=== PATIENT | male | born 1955 | race Caucasian/White ===

== ENCOUNTER → 2016-10-31 | Outpatient (CLI) | payer MEDICARE ==
--- NOTE | 2016-10-31 17:05 | XR ---
Lumbar spine HISTORY: Intervertebral disc degeneration 3 views of the lumbar spine Comparison to CT scan dated March Lumbar vertebral bodies show preserved height and alignment. Bone mineralization is reduced. Mild los s of disc height L3-4, there is associated spondylosis. Sclerosis present in the posterior elements. Superior endplate of T12 show some depression of approximately 25% anteriorly. No evident retropulsio n. Frontal view does not show this region. Surgical clips present in the right hemiabdomen. There are vascular calcifications present. IMPRESSION: Degenerative disc disease, facet arthropathy and osteopenia. Probable osteoporotic compre ssion deformity superior endplate T12
== END | disposition home or self-care (01) ==
LOC: RADXRMAIN 14:50
PROVIDERS: ATTEND Family Medicine
DX: M51.36 Other intervertebral disc degeneration, lumbar region (principal); M46.86 Other specified inflammatory spondylopathies, lumbar region; M85.88 Other specified disorders of bone density and structure, other site
CPT/HCPCS: 72100

== ENCOUNTER 2017-05-14 20:47 | Inpatient (IN) | payer MEDICARE ==
[2017-05-14] MEDS ORDERED: ASPIRIN 81 MG PO STA (21:01)
[2017-05-14] MEDS ORDERED: ONDANSETRON 4 MG/2 ML VIAL IVP STA (21:01)
[2017-05-14] MEDS ORDERED: NITROGLYCERIN SL TABS 0.4 MG TAB SUBLINGUAL STA (21:01)
[2017-05-14] MEDS ORDERED: MORPHINE SULFATE 2 MG/ML SYRINGE IVP STA (21:01)
--- NOTE | 2017-05-14 21:07 | ED ---
Chest Pain HPI - General Chief Complaint: Chest Pain Stated Complaint: Chest pain,dizzy Time Seen by Provider: 05/14/17 21:01 Source: patient Mode of arrival: wheelchair Limitations: no limitations - History of Present Illness Initial Comments: This patient is a 62-year-old man who states that approximately one hour ago he started to experience muscle cramps throughout his extremities. He went to sit down to have his dinner and then started having some left sided and substernal chest pain that he describes as constant, squeezing, severe. He then decided to come here. Patient also developed some nausea and had an episode of vomiting once he arrived here. He was also feeling like he might pass out. Patient states after the episode of vomiting the pain did decrease and is currently moderate. MD Complaint: chest pain Onset/Timin -: hour(s) Onset: during rest Pain Location: substernal, left chest Pain Radiation: none Severity: severe Quality: other (Squeezing) Consistency: constant Improves With: nothing Worsens With: nothing Anginal Symptoms: vomiting Treatments Prior to Arrival: none - Related Data Home Medications Medication Instructions Recorded Confirmed Aspirin 81 mg PO DAILY 05/19/14 05/14/17 Insulin NPL/Insulin Lispro 55 unit SQ QA 05/19/14 05/14/17 [humaLOG MIX 75-25 VIAL] Insulin NPL/Insulin Lispro 70 unit SQ HS 05/19/14 05/14/17 [humaLOG MIX 75-25 VIAL] amLODIPine [Norvasc] 5 mg PO HS 05/19/14 05/14/17 Cholecalciferol [Vitamin D3] 1,000 unit PO DAILY 05/14/17 05/14/17 Doxazosin Mesylate [Cardura] 4 mg PO BID 05/14/17 05/14/17 Furosemide [Lasix] 20 mg PO BID 05/14/17 05/14/17 Lisinopril [Zestril] 20 mg PO BID 05/14/17 05/14/17 [place]-3 Fatty Acids/Fish Oil [Fish 1 cap PO DAILY 05/14/17 05/14/17 Oil 1,000 mg Softgel] Allergies Allergy/AdvReac Type Severity Reaction Status Date / Time No Known Allergies Allergy Verified 05/14/17 20:53 Review of Systems ROS Statement: Those systems with pertinent positive or pertinent negative responses have been documented in the HPI. ROS Other: All systems not noted in ROS Statement are negative. Constitutional: Denies: fever, chills Respiratory: Denies: cough, dyspnea, hemoptysis Cardiovascular: Reports: chest pain. Denies: palpitations, orthopnea, edema, syncope Gastrointestinal: Reports: nausea, vomiting. Denies: abdominal pain Genitourinary: Denies: dysuria, hematuria Musculoskeletal: Denies: back pain Skin: Denies: rash, lesions Neurological: Denies: weakness, paresthesias EKG Findings - EKG Results: EKG: interpreted by ERMD, sinus rhythm, normal axis, normal QRS, normal ST/T EKG shows: bradycardia (Rate approximately 59 bpm) - Blocks, Winger, Hypertrophy, ST Abn: AV and intraventricular conduction: 1 AV block QRS axis and voltage: left axis deviation (-30 to -90) Past Medical History Past Medical History: Cancer, Diabetes Mellitus, Hypertension, Renal Disease History of Any Multi-Drug Resistant Organisms: None Reported Past Surgical History: Cholecystectomy Additional Past Surgical History / Comment(s): colon cancer Past Psychological History: No Psychological Hx Reported Smoking Status: Never smoker Past Alcohol Use History: None Reported Past Drug Use History: None Reported General Exam Limitations: no limitations General appearance: alert, in no apparent distress, obese Head exam: Present: atraumatic, normocephalic Eye exam: Present: normal appearance. Absent: scleral icterus, conjunctival injection ENT exam: Present: normal oropharynx Neck exam: Present: normal inspection, full ROM Respiratory exam: Present: normal lung sounds bilaterally. Absent: respiratory distress, wheezes, rales, rhonchi Cardiovascular Exam: Present: regular rate, normal rhythm, normal heart sounds. Absent: systolic murmur, diastolic murmur, rubs, gallop GI/Abdominal exam: Present: soft. Absent: distended, tenderness, guarding, rebound, mass, pulsatile mass Extremities exam: Present: normal inspection, normal capillary refill. Absent: pedal edema, calf tenderness Back exam: Absent: CVA tenderness (R), CVA tenderness (L) Neurological exam: Present: alert Skin exam: Present: warm, dry, intact, normal color. Absent: rash Course Vital Signs 05/14/17 05/14/17 05/14/17 20:50 21:21 22:11 Temperature 98.2 F Pulse Rate 89 70 67 Respiratory 20 16 16 Rate Blood Pressure 161/72 90/56 94/56 O2 Sat by Pulse 97 98 100 Oximetry Disposition Clinical Impression: Chest pain, Acute renal failure, Hypotension Disposition: ADMITTED IP TO THIS HOSP Condition: Fair Referrals: Harsh Garcia MD [Primary Care Provider] - 1-2 days
[2017-05-14 21:22] LABS: Basophils # (A) 0.1 k/uL (0-0.2); Basophils % (A) 1 %; CH 31.2; CHCM 34.7; Eosinophils # (A) 0.3 k/uL (0-0.7); Eosinophils % (A) 4 %; HDW 2.49; HGB 13.6 gm/dL (13.0-17.5); Luc # (Auto) 0.06; Luc % (Auto) 1; Lymphocytes # (A) 2.2 k/uL (1.0-4.8); Lymphocytes % (A) 32 %; MCH 29.9 pg (25.0-35.0); MCHC 33.1 g/dL (31.0-37.0); Mean Platelet Volume 9.2; Monocytes # (A) 0.4 k/uL (0-1.0); Monocytes % (A) 6 %; Neutrophils # (A) 3.9 k/uL (1.3-7.7); Neutrophils % (A) 56 %; RBC 4.53 m/uL (4.30-5.90); RDW 14.5 % (11.5-15.5); WBC 6.9 k/uL (3.8-10.6); WBC (Perox) 7.09
[2017-05-14 21:25] LABS: MCV 90.4 fL (80.0-100.0)
[2017-05-14] MEDS ORDERED: SODIUM CHLORIDE 0.9% 500 ML IV STA (21:26)
[2017-05-14 21:36] LABS: Calcium 10.2 mg/dL (8.4-10.2); Magnesium 1.9 mg/dL (1.6-2.3); Total Bilirubin 0.7 mg/dL (0.2-1.3); Total Protein 7.8 g/dL (6.3-8.2)
[2017-05-14 21:37] LABS: Partial Thromboplastin Time 22.7 sec (22.0-30.0); Prothrombin Time 10.4 sec (9.0-12.0)
[2017-05-14 21:42] LABS: Creatine Kinase 133 U/L (55-170)
--- NOTE | 2017-05-14 21:44 | XR ---
EXAMINATION TYPE: XR chest 1V portable DATE OF EXAM: 05/14/2017 COMPARISON: 10/13/2013 HISTORY: Chest pain TECHNIQUE: Single frontal view of the chest is obtained. FINDINGS: Heart appears borderline enlarged. There is no heart failure. Lungs are clear of infiltrat e. There is no sign of pleural effusion. There are chest leads. IMPRESSION: No active cardiopulmonary disease. No change.
[2017-05-14 21:55] LABS: Creatine Kinase MB 1.6 ng/mL (0.0-2.4); Troponin I <0.012 ng/mL (0.000-0.034)
[2017-05-14] MEDS ORDERED: NITROGLYCERIN SL TABS 0.4 MG TAB SUBLINGUAL PRN (22:47)
[2017-05-14 23:53] VITALS: BMI 40.6
[2017-05-15 00:15] LABS: Glucose,Whole Blood 236 mg/dL (75-99)
[2017-05-15] MEDS: SODIUM CHLORIDE 0.9% 1,000 ML IV SCH ×3 (00:56→10:52)
[2017-05-15 03:00] LABS: Cholesterol 166 mg/dL (<200); HDL Cholesterol 25 mg/dL (40-60)
[2017-05-15 03:21] LABS: Creatine Kinase 110 U/L (55-170)
[2017-05-15 03:33] LABS: Creatine Kinase MB 1.2 ng/mL (0.0-2.4); Troponin I <0.012 ng/mL (0.000-0.034)
[2017-05-15 06:13] LABS: Glucose,Whole Blood 236 mg/dL (75-99)
[2017-05-15] MEDS ORDERED: INSULIN ASPART 100 UNIT/ML 1 ML 10 ML VIAL SQ ONE (08:45)
[2017-05-15] MEDS ORDERED: CHOLECALCIFEROL 1,000 UNIT TAB PO SCH (09:00)
[2017-05-15] MEDS ORDERED: DOXAZOSIN 4 MG TAB PO SCH (09:00)
[2017-05-15] MEDS ORDERED: ASPIRIN 325 MG TAB PO SCH (09:00)
[2017-05-15 09:46] LABS: Creatine Kinase 113 U/L (55-170)
[2017-05-15 09:53] LABS: Calcium 9.1 mg/dL (8.4-10.2); Potassium 4.7 mmol/L (3.5-5.1)
[2017-05-15 09:59] LABS: Troponin I <0.012 ng/mL (0.000-0.034)
--- NOTE | 2017-05-15 10:34 | P.NPCON ---
History of Present Illness - Reason for Consult acute renal failure, chronic renal failure - History of Present Illness Reason for consultation: Acute kidney injury on chronic kidney disease History of present illness: Patient is a 62-year-old male seen in renal consultation for acute kidney injury on chronic kidney disease. Patient has chronic kidney disease stage III secondary to diabetic kidney disease and solitary left kidney with baseline creatinine in the range of 1.3-1.5. Patient presented to the hospital with lower extremity cramps that started suddenly yesterday evening after he had dinner. Subsequently he also developed chest discomfort. Patient describes the chest discomfort mostly a sharp pain. Patient states when he went to the bathroom he felt lightheaded but denies falling or loss of consciousness. His creatinine on admission was 2.15 and is down to 1.95 today with IV fluids. He was taking an ALAN inhibitor as well as diuretics at home. He admits to good urine output. No hematuria or dysuria. He was noted to be hypotensive with systolic blood pressure in the 80s which has improved. He currently is resting in bed. Oral intake is good. Denies any vomiting or diarrhea. Cramping has resolved. No chest pain at this time. Vital signs are stable. General: The patient appeared well nourished and normally developed. HEENT: Head exam is unremarkable. Neck is without jugular venous distension. LUNGS: Lungs are clear to auscultation and percussion. Breath sounds decreased. HEART: Rate and Rhythm are regular. First and second heart sounds normal. No murmurs, rubs or gallops. ABDOMEN: Abdominal exam reveals normal bowel sounds. Non-tender and non- distended. No evidence of peritonitis. EXTREMITITES: No clubbing, cyanosis, or edema. Past Medical History Past Medical History: Cancer, Diabetes Mellitus, Hypertension, Renal Disease History of Any Multi-Drug Resistant Organisms: None Reported Past Surgical History: Cholecystectomy Additional Past Surgical History / Comment(s): colon cancer Past Anesthesia/Blood Transfusion Reactions: No Reported Reaction Past Psychological History: No Psychological Hx Reported Smoking Status: Former smoker Past Alcohol Use History: None Reported Past Drug Use History: None Reported - Past Family History Mother Family Medical History: Diabetes Mellitus Father Family Medical History: Coronary Artery Disease (CAD) Medications and Allergies Home Medications Medication Instructions Recorded Confirmed Type Aspirin 81 mg PO DAILY 05/19/14 05/14/17 History Insulin NPL/Insulin Lispro 55 unit SQ QAM 05/19/14 05/14/17 History [humaLOG MIX 75-25 VIAL] Insulin NPL/Insulin Lispro 70 unit SQ HS 05/19/14 05/14/17 History [humaLOG MIX 75-25 VIAL] amLODIPine [Norvasc] 5 mg PO HS 05/19/14 05/14/17 History Cholecalciferol [Vitamin D3] 1,000 unit PO DAILY 05/14/17 05/14/17 History Doxazosin Mesylate [Cardura] 4 mg PO BID 05/14/17 05/14/17 History Furosemide [Lasix] 20 mg PO BID 05/14/17 05/14/17 History Lisinopril [Zestril] 20 mg PO BID 05/14/17 05/14/17 History [place]-3 Fatty Acids/Fish Oil [Fish 1 cap PO DAILY 05/14/17 05/14/17 History Oil 1,000 mg Softgel] Allergies Allergy/AdvReac Type Severity Reaction Status Date / Time No Known Allergies Allergy Verified 05/14/17 20:53 Physical Exam Vitals: Vital Signs Temp Pulse Pulse Resp BP BP BP 05/15/17 08:00 97.3 F L 20 118/75 05/15/17 04:00 72 16 87/44 05/15/17 00:00 96.8 F L 69 18 125/70 05/14/17 23:14 96.8 F L 69 18 125/70 05/14/17 23:10 67 16 87/57 05/14/17 22:11 67 16 94/56 05/14/17 21:21 70 16 90/56 05/14/17 20:50 98.2 F 89 20 161/72 Pulse Ox 05/15/17 08:00 97 05/15/17 04:00 96 05/15/17 00:00 98 05/14/17 23:14 98 05/14/17 23:10 97 05/14/17 22:11 100 05/14/17 21:21 98 05/14/17 20:50 97 Intake and Output 05/14/17 05/15/17 05/15/17 22:59 06:59 14:59 Intake Total 225 0 Output Total 450 Balance 225 -450 Intake: Intake, IV Titration 125 Amount Sodium Chloride 0.9% 1, 125 000 ml @ 125 mls/hr IV . Q8H [facility] Rx#:[id number] Oral 100 0 Output: Urine 450 Other: Voiding Method Toilet Toilet # Voids 1 Weight 126.552 kg 124.7 kg Results - Lab Results Most recent lab results Calcium 9.1 mg/dL (8.4-10.2) 05/15/17 09:09 Magnesium 1.9 mg/dL (1.6-2.3) 05/14/17 21:06 05/14/17 21:06 05/15/17 09:09 Assessment and Plan Plan: Assessment: #1. Nonoliguric acute kidney injury mostly prerenal secondary to hypotension and further worsened from diuretics. Improving with IV hydration. Creatinine was 2.15 on admission and is down to 1.95 today. #2. Chronic kidney disease stage III secondary to diabetic kidney disease and solitary left kidney with baseline creatinine in the range of 1.3-1.5. #3. History of right-sided nephrectomy secondary to renal cancer. #4. Insulin-dependent diabetes mellitus. #5. Hypertension with chronic kidney disease. Blood pressures on the lower side. #6. Chest pain. Rule out cardiac etiology. Plan: I will decrease the rate of normal saline to 80 mL an hour. Discontinue diuretics. Hold antihypertensives for systolic blood pressure less than 120. Potential discharge once cleared by cardiology. I advised him to weigh himself regularly and to resume Lasix if notices more than 2-3 pound weight gain. He will need to follow-up as an outpatient in the next 2 weeks. Thank you for the consultation. I will continue to follow the patient with you during his hospital stay.
[2017-05-15 10:46] LABS: Appearance,Urine Clear (Clear); Bilirubin,Urine Negative (Negative); Glucose,Urine (UA) 3+ (Negative); Ketones,Urine Negative (Negative); Leukocyte Esterase,Urine Negative (Negative); Nitrite,Urine Negative (Negative); PH, Urine 5.5 (5.0-8.0); Protein,Urine Trace (Negative); Specific Gravity,Urine 1.012 (1.001-1.035); UA Billing (MACRO vs. MICRO) CHEM; Urobilinogen,Urine <2.0 mg/dL (<2.0)
[2017-05-15 11:53] VITALS: BP 123/73; PULSE 77; RESP 16; TEMP 97.4
[2017-05-15] MEDS: INSULIN NPH/REG INSULIN 70/30 300 UNIT/3 ML VIAL SQ SCH ×2 (12:11→13:24)
[2017-05-15 12:19] LABS: Glucose,Whole Blood 218 mg/dL (75-99)
[2017-05-15] MEDS ORDERED: INSULIN ASPART 100 UNIT/ML 1 ML 10 ML VIAL SQ SCH (12:30)
--- NOTE | 2017-05-15 16:08 | CONS ---
CONSULTATION Brian Dixon is a 62-year-old gentleman who presented to the hospital with episode of a vasovagal near-syncope and then had atypical chest pain. This gentleman has history of renal cancer and right nephrectomy in the past, has a 50% functioning of the left kidney. He has a creatinine that is in the range of 2.0. He apparently felt very nauseated yesterday and felt sick to the stomach as he was going to throw up. He went into the bathroom and then he finally felt dizzy, lightheaded, as if is going to pass out. His held him and then he rested after that. He had pain in the chest and came into the hospital. The pain in the chest seems to be more of a nausea and retching type pain, musculoskeletal in nature and does not seem to be anginal. His troponins are normal. He is resting comfortably without symptoms. His creatinine is in the range of 1.9-2.0. At the time of my evaluation, he is asymptomatic. PAST MEDICAL HISTORY: 1. Renal cell cancer status post right nephrectomy with known a kidney dysfunction and CKD. 2. Hypertension. 3. Hyperlipidemia. 4. Type 2 diabetes mellitus. ALLERGIES: None. MEDICATIONS: At home include lisinopril, Lasix, vitamin supplements, amlodipine, insulin, doxazosin, aspirin. PHYSICAL EXAMINATION: Blood pressure is 123/70, pulse rate is 72 per minute, regular. HEENT: Unremarkable. Fundus was not examined by me. Neck is supple. There is no JVD. I do not hear a carotid bruit. Heart exam was S1, S2 with somewhat distant heart sounds. Lungs reveal diminished air entry. Abdomen is soft, nontender. Lower extremities reveal diminished pulses. Central nervous system is normal EKG revealed sinus mechanism, leftward axis, no acute changes. After patient arrived to the hospital, he was hypotensive for quite some time, but his blood pressure appears to be quite good at this time. IMPRESSION: 1. Severe vasovagal episode precipitated by nausea. 2. History of chronic chronic kidney disease with a known right nephrectomy for renal cell cancer. 3. Atypical chest pain. 4. History of hypertension. RECOMMENDATION: I am recommending that we can increase activity and discharge the patient on home medications and I explained to him that this appears to be vasovagal phenomena. No arrhythmia was noted. I will see him in the office in the next couple of weeks and then we we will consider some stress testing down the road. His previous echocardiogram according to the patient was unremarkable. Patient wishes to go home and we will discharge him today and we will see him in the office in a couple of weeks. I discussed my thoughts in detail with the patient. This patient also has diabetes and I advised him the importance of controlling blood sugars to prevent any worsening renal function. Discussed my thoughts in detail with the patient. Thank you very much for the consult. LORENZO / BRUCE: [id number] /
--- NOTE | 2017-05-15 19:35 | HP ---
HISTORY AND PHYSICAL This is a combined history and physical and discharge summary. CHIEF COMPLAINT: Chest pain. HISTORY OF PRESENT ILLNESS: This 62-year-old gentleman with a past history of diabetes, hypertension, history of renal disease, cholecystectomy being followed by Dr. Harsh Garcia in the outpatient setting initially yesterday had cramps ascending from both legs and then which went up and subsequently patient sat at dinner. Patient had abdominal discomfort. The patient vomited. The patient also had substernal chest pain. Patient came to [facility] and admitted for evaluation and treatment. Pain was described as a squeezing. There is no history of fever, rigors. No history of headache, loss of consciousness, seizures. No radiation or relieving of the pain. Troponins are negative. Glucose is elevated. The patient admitted for further evaluation and treatment. PAST MEDICAL HISTORY: History of diabetes, hypertension, renal disease, history of cholecystectomy. MEDICATIONS: Prior to admission include home medications are: 1. Vitamin D 3000 daily. 2. [place]-3 fatty acids daily. 3. Norvasc 5 mg q.h.s. 4. Humalog mix 75/25 70 units q.h.s. and 52 units subcu q.a.m. 5. Cardura 4 mg p.o. b.i.d. 6. Aspirin 81 mg p.o. daily. ALLERGIES: None. FAMILY HISTORY: History of diabetes type 2. SOCIAL HISTORY: History of previous smoking. No history of current smoking or alcohol intake. REVIEW OF SYSTEMS: ENT: No diminished hearing or vision. CARDIOVASCULAR: As mentioned earlier. RESPIRATORY: As mentioned earlier. GI: No nausea. : No dysuria. NERVOUS SYSTEM: No numbness or weakness. ALLERGY/IMMUNOLOGY: No asthma or hayfever. MUSCULOSKELETAL: As mentioned earlier. HEMATOLOGY: No history of anemia. ENDOCRINE: No history of diabetes. CONSTITUTIONAL: As mentioned earlier. DERMATOLOGY: Negative. RHEUMATOLOGY: Negative. PSYCHIATRY: As mentioned. PHYSICAL EXAMINATION: Alert, oriented x3. Pulse 77, blood pressure 133/73, respiration 16, temperature 97.2, pulse ox 98% on room air. HEENT: Conjunctivae normal. Oral mucosa moist. Neck is no jugular venous distention. No carotid bruit. No lymph node enlargement. CARDIOVASCULAR: S1, S2. RESPIRATORY: Breath sounds diminished in the bases. No rhonchi, no crackles. ABDOMEN: Soft, obese, nontender. No mass palpable. LEGS: No edema. No swelling. NERVOUS SYSTEM: Higher function as mentioned. Moves all four limbs. No focal motor deficits. LYMPHATICS: No lymphadenopathy in the neck, axillae or groin. SKIN: No ulcer, rash or bleeding. LAB STUDIES: WBC is 6.2, hemoglobin 13.6, creatinine 2.195. Amylase and lipase noted. ASSESSMENT: 1. Muscle cramps and vomiting for evaluation, probably acute gastritis. 2. Chest pain, myocardial infarction ruled out. Rule out coronary artery disease. 3. Increased creatinine with possible acute on chronic kidney disease. 4. Diabetes mellitus type 2. 5. Hypertension. 6. Cholecystectomy. RECOMMENDATION: This 62-year-old gentleman who presented with multiple complex medical issues, will monitor the patient closely. Continue the current medications and symptomatic treatment. Cardiology has been consulted. Nephrology also saw the patient. Cardiology recommended outpatient followup. Otherwise the patient is being discharged in stable condition with guarded prognosis. Please refer to the discharge medication reconciliation for the home medications. Nephrology also the patient. DISCHARGE MEDICATIONS: 1. Norvasc 5 mg p.o. daily. 2. Aspirin 81 mg. 3. Vitamin D 3000 daily. 4. Cardura 4 mg p.o. b.i.d. 5. Insulin [employer] and insulin lispro 55 units subcu q.p.m. and q.a.m. and lispro 70 units subcu q.h.s. 6. Fish oil 1 p.o. Follow up with Director Emergency as recommended: Time taken 35 minutes. LORENZO / ELIUN: [id number] / IAN
[2017-05-15] MEDS ORDERED: INSULIN NPH/REG INSULIN 70/30 300 UNIT/3 ML VIAL SQ SCH (21:00)
[2017-05-15] MEDS ORDERED: amLODIPine 5 MG TAB PO SCH (21:00)
== END 2017-05-15 16:06 | disposition home or self-care (01) | DRG 313 ==
LOC: EC 20:47 → 6SEL 22:47
PROVIDERS: ADMIT Family Medicine; ATTEND Family Medicine
DX: R07.89 Other chest pain (principal); N17.9 Acute kidney failure, unspecified; I25.10 Atherosclerotic heart disease of native coronary artery without angina pectoris; E11.22 Type 2 diabetes mellitus with diabetic chronic kidney disease; I95.9 Hypotension, unspecified; N18.3 Chronic kidney disease, stage 3 (moderate); K29.00 Acute gastritis without bleeding; I12.9 Hypertensive chronic kidney disease with stage 1 through stage 4 chronic kidney disease, or unspecified chronic kidney disease; E78.5 Hyperlipidemia, unspecified; R25.2 Cramp and spasm; R55 Syncope and collapse; T50.2X5A Adverse effect of carbonic-anhydrase inhibitors, benzothiadiazides and other diuretics, initial encounter; E66.9 Obesity, unspecified; Z68.41 Body mass index [BMI] 40.0-44.9, adult; Z79.4 Long term (current) use of insulin; Z79.82 Long term (current) use of aspirin; Z79.899 Other long term (current) drug therapy; Z85.038 Personal history of other malignant neoplasm of large intestine; Z85.528 Personal history of other malignant neoplasm of kidney; Z87.891 Personal history of nicotine dependence; Z90.5 Acquired absence of kidney; Z90.49 Acquired absence of other specified parts of digestive tract; Z82.49 Family history of ischemic heart disease and other diseases of the circulatory system; Y92.239 Unspecified place in hospital as the place of occurrence of the external cause
CPT/HCPCS: 36415; 71010; 80048; 80053; 80061; 81003; 82150; 82550; 82553; 83036; 83690; 83735; 84484; 85025; 85379; 85610; 85730; 96374; 99285

== ENCOUNTER → 2018-04-17 | Outpatient (CLI) | payer MEDICARE ==
--- NOTE | 2018-04-17 15:25 | US ---
EXAMINATION TYPE: US venous doppler duplex LE DATE OF EXAM: 04/17/2018 3:10 PM COMPARISON: NONE CLINICAL HISTORY: R60.0 Edema. Large body habitus limited SIDE PERFORMED: Bilateral TECHNIQUE: The lower extremity deep venous system is examined utilizing real time linear array sonog brenda with graded compression, doppler sonography and color-flow sonography. VESSELS IMAGED: External Iliac Vein (EIV) Common Femoral Vein Deep Femoral Vein Greater Saphenous Vein * Femoral Vein Popliteal Vein Proximal Calf Veins (* superficial vessels) Grayscale, color doppler, spectral doppler imaging performed of the deep veins of the lower extremiti es. There is normal flow, compressibility, vascular waveforms. Right Leg: Negative for DVT Left Leg: Positive for DVT IMPRESSION: No sonographic evidence of deep venous thrombosis within either lower extremity.
== END | disposition home or self-care (01) ==
LOC: RADUSWWP 14:28
PROVIDERS: ATTEND Family Medicine
DX: R60.0 Localized edema (principal)
CPT/HCPCS: 93970

== ENCOUNTER → 2018-06-11 | Outpatient (CLI) | payer MEDICARE ==
--- NOTE | 2018-06-11 08:25 | US ---
EXAMINATION TYPE: US carotid duplex BILAT DATE OF EXAM: 06/11/2018 COMPARISON: NONE CLINICAL HISTORY: G45.3 amaurosis Fugax right eye. EXAM MEASUREMENTS: RIGHT: Peak Systolic Velocity (PSV) cm/sec ----- Right CCA: 129.2 ----- Right ICA: 105.6 ----- Right ECA: 110.8 ICA/CCA ratio: 0.8 RIGHT: End Diastole cm/sec ----- Right CCA: 11.0 ----- Right ICA: 24.1 ----- Right ECA: 17.1 LEFT: Peak Systolic Velocity (PSV) cm/sec ----- Left CCA: 129.2 ----- Left ICA: 81.0 ----- Left ECA: 173.3 ICA/CCA ratio: 0.6 LEFT: End Diastole cm/sec ----- Left CCA: 16.9 ----- Left ICA: 11.1 ----- Left ECA: 13.0 VERTEBRALS (direction of flow): Right Vertebral: Antegrade Left Vertebral: Antegrade Rhythm: Normal Grayscale images show moderate to severe eccentric plaque at bilateral carotid bulbs. No significant increased velocities and internal carotid arteries relative to common carotid arteries is identified. Increased peak systolic velocities bilateral common carotid arteries raises concern for underlying h ypertension. Correlate clinically. IMPRESSION: Moderate to severe atherosclerotic change bilaterally without hemodynamically significan t stenosis clearly seen at level of carotid bulbs. Criteria for Assigning % of Stenosis / Diameter reduction (Estimation based on the indirect measurements of the internal carotid artery velocities (ICA PSV). 1. Normal (no stenosis)=ICA PSV < 125 cm/s: ratio < 2.0: ICA EDV<40 cm/s. 2. Less than 50% stenosis=ICA PSV < 125 cm/s: ratio < 2.0: ICA EDV<40 cm/s. 3. 50 to 69% stenosis=ICA PSV of 125 to 230 cm/s: ration 2.0 ? 4.0: ICA EDV 40-100 cm/s. 4. Greater than 70% stenosis to near occlusion= ICA PSV > 230 cm/s: ratio > 4.0: ICA EDV > 100 cm/s. 5. Near occlusion= ICA PSV velocities may be low or undetectable: variable ratio and ICA EDV. 6. Total occlusion=unable to detect flow.
== END | disposition home or self-care (01) ==
LOC: RADUSWWP 07:33
PROVIDERS: ATTEND Family Medicine
DX: I65.23 Occlusion and stenosis of bilateral carotid arteries (principal)
CPT/HCPCS: 93880

== ENCOUNTER → 2018-07-17 | Outpatient (CLI) | payer MEDICARE ==
--- NOTE | 2018-07-17 09:11 | XR ---
EXAMINATION TYPE: XR chest 2V DATE OF EXAM: 07/17/2018 COMPARISON: 10/03/2017 TECHNIQUE: PA and lateral views submitted. HISTORY: asbestos exposure FINDINGS: The lungs are clear and there is no pneumothorax, pleural effusion, or focal pneumonia. Pleural-base d thickening noted. Heart size prominent. Atherosclerotic change of the aorta. No pleural calcificati ons. IMPRESSION: 1. No acute process. Stable pleural thickening. No pleural calcifications.
== END | disposition home or self-care (01) ==
LOC: RADXRMAIN 06:27
PROVIDERS: ATTEND Family Medicine
DX: J92.9 Pleural plaque without asbestos (principal); Z77.090 Contact with and (suspected) exposure to asbestos
CPT/HCPCS: 71046

== ENCOUNTER → 2018-08-11 | Outpatient (CLI) | payer MEDICARE ==
--- NOTE | 2018-08-11 09:43 | US ---
EXAMINATION TYPE: US kidneys/renal and bladder DATE OF EXAM: 08/11/2018 COMPARISON: Ultrasound 01/13/2016 CLINICAL HISTORY: 63-year-old male N18.3 CKD stage 3. History of right nephrectomy. TECHNIQUE: Multiple sonographic images of the kidneys and bladder are obtained. FINDINGS: EXAM MEASUREMENTS: Right Kidney: Surgically absent cm Left Kidney: 15.9 x 6.3 x 6.4 cm Right Kidney: Surgically absent Left Kidney: No hydronephrosis or masses seen Bladder: wnl Bilateral Jets seen: Only left jet seen, consistent with right nephrectomy. IMPRESSION: 1. Status post right nephrectomy. 2. No hydronephrosis on the left. Note that ultrasound has low sensitivity for detection of small archie id renal masses. No evident sonographic abnormality seen.
== END | disposition home or self-care (01) ==
LOC: RADUSWWP 07:26
PROVIDERS: ATTEND Internal Medicine
DX: N18.3 Chronic kidney disease, stage 3 (moderate) (principal); Z90.5 Acquired absence of kidney
CPT/HCPCS: 76770

== ENCOUNTER 2019-03-20 07:41 | Emergency (ER) | payer MEDICARE ==
[2019-03-20 07:47] VITALS: TEMP 97.4
[2019-03-20] MEDS ORDERED: HYDROmorphone 1 MG/ML 1 ML SYRINGE IM STA (08:06)
[2019-03-20] MEDS ORDERED: KETOROLAC 60 MG/2 ML VIAL IM STA (08:06)
--- NOTE | 2019-03-20 08:49 | XR ---
EXAMINATION TYPE: XR Hip RT and AP Pelvis DATE OF EXAM: 03/20/2019 COMPARISON: NONE HISTORY: Trauma and pain TECHNIQUE: A single AP view of the pelvis is obtained. Two views of the right hip are obtained. FINDINGS: There is no acute fracture/dislocation evident in the pelvis. The hip and sacroiliac join ts appear symmetric and unremarkable. The overlying soft tissue appears unremarkable. Two views of right hip show no acute fracture or dislocation. No focal lytic or sclerotic lesion see n in the proximal right femur. The overlying soft tissue is unremarkable. Vascular calcifications p resent within the pelvis. IMPRESSION: There is no acute fracture or dislocation in the pelvis or right hip.
--- NOTE | 2019-03-20 08:51 | XR ---
Lumbar spine HISTORY: Trauma and pain 3 views of the lumbar spine correlated to prior exam 10/31/2016 No significant interval change. Surgical clips present in the right paraspinal location. Lumbar verte bral bodies show stable height, alignment, bone mineralization is reduced. Sclerosis of the posterior elements compatible with facet arthropathy. Is multilevel spondylosis. Some loss of disc height L3-4 , L5-S1. Vascular calcifications again noted in the aortoiliac distribution. IMPRESSION: No acute fracture or subluxation. Degenerative disc disease. Set arthropathy. Osteopenia.
--- NOTE | 2019-03-20 09:20 | ED ---
Extremity Problem HPI - General Chief complaint: Extremity Problem,Nontraumatic Stated complaint: RT HIP PAIN Time Seen by Provider: 03/20/19 07:50 Source: patient, RN notes reviewed, old records reviewed Mode of arrival: wheelchair Limitations: no limitations - History of Present Illness Initial comments: Patient is a 64-year-old male presents emergency department today for chief complaint of right hip pain. Symptoms started to progress with past 2 days. He reports pain is so bad with ambulation that he started to vomit. Patient states he has no abdominal pain. He denies any changes in urination. He reports pain is worse with bearing weight over the leg. He reports that he is told that he will need a hip replacement. He states that he did have a fall 3 weeks ago. But was able to ambulate and shortly after that without any difficulty. Patient states that he's had no peripheral paresthesias. He denies any associated chest pain or significant back pain. - Related Data Home Medications Medication Instructions Recorded Confirmed Aspirin 81 mg PO DAILY 05/19/14 05/14/17 Insulin NPL/Insulin Lispro 55 unit SQ QAM 05/19/14 05/14/17 [humaLOG MIX 75-25 VIAL] Insulin NPL/Insulin Lispro 70 unit SQ HS 05/19/14 05/14/17 [humaLOG MIX 75-25 VIAL] Cholecalciferol [Vitamin D3 (25 1,000 unit PO DAILY 05/14/17 05/14/17 Mcg = 1000 Iu)] Doxazosin Mesylate [Cardura] 4 mg PO BID 05/14/17 05/14/17 Exira-3 Fatty Acids/Fish Oil [Fish 1 cap PO DAILY 05/14/17 05/14/17 Oil 1,000 mg Softgel] Previous Rx's Medication Instructions Recorded amLODIPine [Norvasc] 5 mg PO HS #0 05/15/17 Acetaminophen with Codeine 1 tab PO Q6H PRN 3 Days #12 tab 03/20/19 [Tylenol w/codeine #3] Allergies Allergy/AdvReac Type Severity Reaction Status Date / Time No Known Allergies Allergy Verified 03/20/19 07:47 Review of Systems ROS Statement: Those systems with pertinent positive or pertinent negative responses have been documented in the HPI. ROS Other: All systems not noted in ROS Statement are negative. Past Medical History Past Medical History: Cancer, Diabetes Mellitus, Hypertension, Renal Disease History of Any Multi-Drug Resistant Organisms: None Reported Past Surgical History: Cholecystectomy, Joint Replacement Additional Past Surgical History / Comment(s): colon cancer Past Anesthesia/Blood Transfusion Reactions: No Reported Reaction Past Psychological History: No Psychological Hx Reported Smoking Status: Former smoker Past Alcohol Use History: None Reported Past Drug Use History: None Reported - Past Family History Mother Family Medical History: Diabetes Mellitus Father Family Medical History: Coronary Artery Disease (CAD) General Exam - General Exam Comments Initial Comments: This is a 64-year-old male. Alert and oriented 3. Patient appears in mild discomfort. Sitting in a wheelchair. Limitations: no limitations General appearance: alert, in no apparent distress Head exam: Present: atraumatic, normocephalic, normal inspection Eye exam: Present: normal appearance, PERRL, EOMI. Absent: scleral icterus, conjunctival injection, periorbital swelling ENT exam: Present: normal exam, mucous membranes moist Neck exam: Present: normal inspection. Absent: tenderness, meningismus, lymphadenopathy Respiratory exam: Present: normal lung sounds bilaterally. Absent: respiratory distress, wheezes, rales, rhonchi, stridor Cardiovascular Exam: Present: regular rate, normal rhythm, normal heart sounds. Absent: systolic murmur, diastolic murmur, rubs, gallop, clicks GI/Abdominal exam: Present: soft, normal bowel sounds. Absent: distended, tenderness, guarding, rebound, rigid Extremities exam: Present: normal inspection, full ROM, normal capillary refill, other (Patient has tenderness over the right hip.). Absent: tenderness, pedal edema, joint swelling, calf tenderness Back exam: Present: normal inspection Neurological exam: Present: alert, oriented X3, CN II-XII intact Psychiatric exam: Present: normal affect, normal mood Skin exam: Present: warm, dry, intact, normal color. Absent: rash Course Vital Signs 03/20/19 07:45 Temperature 97.4 F L Pulse Rate 73 Respiratory 20 Rate Blood Pressure 167/82 O2 Sat by Pulse 99 Oximetry Medical Decision Making - Medical Decision Making 64-year-old with today with worsening pain over the right hip pain with movement for the past 2 days. he reports he has a known history of arthritis within the hip does follow with orthopedic Doctor, dr. altman. Patient has been taking naproxen for pain relief. He denies any abdominal pain or significant back pain. Denies any chest pain. He reports full 3 weeks ago. This time patient's last intent distally with dorsalis pedis pulse 2+ bilaterally. Patient was ev aluated with sitting in a chair. Anesthetized Patient with a hip. I discussed x-rays at this time to rule out fracture. Patient has had history of CTs and MRIs of his back and hip before. He reports he does know he needs to have this hip replacement. At this time patient's x-ray negative for acute fracture. I did discuss offering no further imaging such as CT. Patient declines. He states that he says has a follow-up with orthopedic and is requesting something for pain management until then. His health care marketing specialist appointment is on April 01. I discussed discharge and Patient with a short course of a temperature and pain medicine. Discussed return parameters. All questions were answered return parameters were discussed. - Radiology Data Radiology results: report reviewed fracture-dislocation in the pelvis or right hip. X-ray lumbar spine shows no acute fracture subluxation. Degenerative disc disease and facet arthropathy. Evidence of osteopenia. Some disc height loss at L3-L4 and L5-S1. Disposition Clinical Impression: Chronic right hip pain, DDD (degenerative disc disease), lumbar Disposition: HOME SELF-CARE Condition: Good Instructions (If sedation given, give patient instructions): Hip Pain (ED) Additional Instructions: Please use medication as discussed. Please follow up with family doctor if symptoms have not improved over the next two days. Please return to the emergenc y room if your symptoms increase or worsen or for any other concerns. Prescriptions: Acetaminophen with Codeine [Tylenol w/codeine #3] 1 tab PO Q6H PRN 3 Days #12 tab PRN Reason: Pain Is patient prescribed a controlled substance at d/c from ED?: Yes If prescribed controlled substance>3 days was MAPS reviewed?: Prescribed <3 Days If opioid is for acute pain is fill amount 7 days or less?: Yes If Rx opioid, was Start Talking consent form obtained?: Yes Referrals: Harsh Garcia MD [Primary Care Provider] - 1-2 days Time of Disposition: 09:43
[2019-03-20 09:54] VITALS: BP 160/70; PULSE 76; RESP 16
== END 2019-03-20 09:45 | disposition home or self-care (01) ==
LOC: EC 07:41
DX: G89.29 Other chronic pain (principal); M25.551 Pain in right hip; M51.36 Other intervertebral disc degeneration, lumbar region; E11.9 Type 2 diabetes mellitus without complications; I10 Essential (primary) hypertension; Z79.82 Long term (current) use of aspirin; Z79.4 Long term (current) use of insulin; Z79.899 Other long term (current) drug therapy; Z87.891 Personal history of nicotine dependence; Z85.038 Personal history of other malignant neoplasm of large intestine
CPT/HCPCS: 72100; 73502; 96372; 99284

== ENCOUNTER → 2019-07-30 | Outpatient (CLI) | payer MEDICARE ==
[~2019-07-30] MED LIST: REGADENOSON 0.4 MG/5 ML SYRINGE IV ONE
--- NOTE | 2019-07-30 11:44 | NM ---
"EXAMINATION TYPE: NM stress lexiscan cardiolite DATE OF EXAM: 07/30/2019 COMPARISON: NONE HISTORY: Hypertension and abnormal EKG TECHNIQUE: After the intravenous administration of 9.89 mCi Tc 99m Sestamibi - Cardiolite resting SP ECT images acquired 45 minutes post injection. The patient received 0.4mg Lexiscan, 26.8 mCi Tc 99m Sestamibi - Stress images obtained [address] injection FINDINGS: Review of stress and rest SPECT images demonstrates questionable tiny focal area of stress-induced is chemia involving the inferior apical myocardium. Gated analysis shows normal wall motion with an eda mated left ventricular ejection fraction of 53 %. IMPRESSION: 1. Tiny focal area of stress-induced reversible ischemia within the apical inferior myocardium not ex cluded correlate clinically. A [place] level critical message alert has been initiated for Harsh Garcia MD via the [employer] 0 | Critical Results System on 07/30/2019 11:42 AM. This message alert has been sent to Harsh Garcia MD via the preferences provided by the clinician for the receipt of Radiology Critical Findings. [facility] ID [id number]."
--- NOTE | 2019-07-30 13:38 | ECHOF ---
Referral Reason:I10 hypertension, ABN Ekg R94.31 MEASUREMENTS -------- HEIGHT: 0.0 cm WEIGHT: 0.0 kg BP: 180/85 RVIDd: 3.7 cm (< 3.3) IVSd: 1.4 cm (0.6 - 1.1) LVIDd: 5.9 cm (3.9 - 5.3) LVPWd: 1.3 cm (0.6 - 1.1) IVSs: 1.9 cm LVIDs: 3.7 cm LVPWs: 2.0 cm LA Diam: 4.1 cm (2.7 - 3.8) LAESV Index (A-L): 34.13 ml/m Ao Diam: 3.6 cm (2.0 - 3.7) AV Cusp: 2.4 cm (1.5 - 2.6) MV EXCURSION: 21.475 mm (> 18.000) MV EF SLOPE: 150 mm/s (70 - 150) EPSS: 1.0 cm MV E Scott: 1.85 m/s MV DecT: 193 ms MV A Scott: 0.89 m/s MV E/A Ratio: 2.09 RAP: 5.00 mmHg RVSP: 34.57 mmHg FINDINGS -------- Sinus rhythm. This was a technically difficult study with suboptimal views. The left ventricular size is normal. There is moderate concentric left ventricular hypertrophy. O verall left ventricular systolic function is normal with, an EF between 55 - 60 %. The right ventricle is mildly enlarged. LA is moderately dilated 34-39 ml/m2 The right atrium is normal in size. 4 ml of Lumason was utilized for enhancement of images. Interatrial and interventricular septum intact. The aortic valve is trileaflet and appears structurally normal. Mild mitral regurgitation is present. Mild tricuspid regurgitation present. There is mild pulmonary hypertension. The right ventricular systolic pressure, as measured by Doppler, is 34.57mmHg. The pulmonic valve was not well visualized. The aortic root size is normal. Normal inferior vena cava with normal inspiratory collapse consistent with estimated right atrial pre ssure of 5 mmHg. The inferior vena cava is mildly dilated. Echo free space may represent effusion or a pericardial fat pad. CONCLUSIONS -------- 1. Sinus rhythm. 2. This was a technically difficult study with suboptimal views. 3. The left ventricular size is normal. 4. There is moderate concentric left ventricular hypertrophy. 5. Overall left ventricular systolic function is normal with, an EF between 55 - 60 %. 6. The right ventricle is mildly enlarged. 7. LA is moderately dilated 34-39 ml/m2 8. The right atrium is normal in size. 9. 4 ml of Lumason was utilized for enhancement of images. 10. Interatrial and interventricular septum intact. 11. The aortic valve is trileaflet and appears structurally normal. 12. Mild mitral regurgitation is present. 13. Mild tricuspid regurgitation present. 14. There is mild pulmonary hypertension. 15. The right ventricular systolic pressure, as measured by Doppler, is 34.57mmHg. 16. The pulmonic valve was not well visualized. 17. The aortic root size is normal. 18. Normal inferior vena cava with normal inspiratory collapse consistent with estimated right atrial pressure of 5 mmHg. 19. The inferior vena cava is mildly dilated. 20. Echo free space may represent effusion or a pericardial fat pad. GROUND WIRER: Siobhan Curtis RDCS
--- NOTE | 2019-07-30 13:58 | EST ---
EXERCISE STRESS AGE: 64 SEX: M HT: 69" WT: 293 PROTOCOL: Lexiscan Cardiolite HEART RATE REST: 52 BLOOD PRESSURE REST: 180/85 MAXIMUM HEART RATE ACHIEVED: 66 MAXIMUM BLOOD PRESSURE: 187/77 85% MPHR: 133 100% MPHR: 156 INDICATIONS: Preoperative, abnormal EKG. CLINICAL INFORMATION: Baseline EKG revealed a sinus mechanism with a right bundle branch block pattern and leftward axis. The patient had a first-degree AV block on initial EKG with Lexiscan imaging, heart rate changed from 52-66 beats per minute and the blood pressure changed from 180/85 to 187/77. Patient was asymptomatic. By EKG criteria, this is an inconclusive Lexiscan stress test. The nuclear scan results which are more pertinent will be reported by the radiologist. MMEUFEMIA / IJN: [id number] /
== END | disposition home or self-care (01) ==
LOC: RADNMMAIN 08:42
PROVIDERS: ATTEND Family Medicine
DX: I08.1 Rheumatic disorders of both mitral and tricuspid valves (principal); I27.20 Pulmonary hypertension, unspecified; I87.8 Other specified disorders of veins; I10 Essential (primary) hypertension; I44.0 Atrioventricular block, first degree; I45.10 Unspecified right bundle-branch block; R94.39 Abnormal result of other cardiovascular function study
CPT/HCPCS: 93017; 78452; C8929; A9500; J2785; Q9950; 93306

== ENCOUNTER 2020-03-17 06:48 | Day surgery (SDC) | payer MEDICARE ==
[2020-03-15 15:43] VITALS: BMI 44.3
[~2020-03-17 06:48] MED LIST changes: +LACTATED RINGERS 1,000 ML IV SCH; +LIDOCAINE 1% (10MG/ML) FOR IV START INTRADERMA PRN; -REGADENOSON 0.4 MG/5 ML SYRINGE IV ONE
[2020-03-17 07:22] VITALS: RESP 16; TEMP 98.7
[2020-03-17 07:25] LABS: Glucose,Whole Blood 83 mg/dL (75-99)
[2020-03-17] MEDS ORDERED: ONDANSETRON 4 MG/2 ML VIAL ONE (07:26)
[2020-03-17] MEDS ORDERED: ONDANSETRON 4 MG/2 ML VIAL IVP ONE (07:28)
[2020-03-17] MEDS ORDERED: GLYCOPYRROLATE 0.2 MG/ML 2 ML VIAL ONE (07:34)
[2020-03-17] MEDS ORDERED: LIDOCAINE 1% INJ 10MG/ML (20 ML MDV) ONE (07:34)
[2020-03-17] MEDS ORDERED: PROPOFOL 10 MG/ML 20 ML VIAL IV ONE (07:34)
--- NOTE | 2020-03-17 08:17 | P.PCN ---
Date of Procedure: 03/17/20 Description of Procedure: BRIEF HISTORY: Patient is a 63-year-old male presenting for outpatient colonoscopy for screening for malignant neoplasm of the colon. He reports last colonoscopy in 2013. He reports polypectomy in the past. No family history of colon cancer. PROCEDURE PERFORMED: Colonoscopy with polypectomy. PREOPERATIVE DIAGNOSIS: Screening for malignant neoplasm of the colon, last colonoscopy 2013. ESTIMATED BLOOD LOSS: Minimal. IV sedation per Anesthesia. PROCEDURE: After informed consent was obtained, the patient, was brought into the endoscopy unit. IV sedation was administered by Anesthesia under continuous monitoring. Digital rectal examination was normal. Initially the Olympus CF-190 flexible video colonoscope was then inserted in the rectum, gradually advanced into the cecum without any difficulty. Careful examination was performed as the scope was gradually being withdrawn. Ileocecal valve and the appendiceal orifice were visualized and appeared normal. Prep was excellent. Mucosa of the cecum, ascending colon, transverse colon, descending colon, sigmoid colon, and rectum appeared normal. One diminutive 2 mm cecal polyp removed with cold forcep polypectomy. 8 polyps measuring 3-6 mm in size removed with cold snare polypectomy, 3 from the ascending colon, 3 from the transverse colon, and 2 from the descending colon. Retroflexion was performed in the rectum and no lesions were seen, low-grade internal hemorrhoids. The patient tolerated the procedure well. IMPRESSION: Diminutive cecal polyp removed with cold forcep polypectomy. 8 polyps removed with cold snare polypectomy, 3 from the ascending colon, 3 from the transverse colon and 2 from the descending colon. Low-grade internal hemorrhoids RECOMMENDATIONS: Findings of this examination were discussed with the patient and his family. Okay to resume diet. Okay to resume medications. Await pathology from polypectomies. Would recommend repeat colonoscopy in 3 years for high risk colon polyps, pending pathology.
[2020-03-17 08:26] LABS: Glucose,Whole Blood 81 mg/dL (75-99)
[2020-03-17 08:28] VITALS: PULSE 74
[2020-03-17 08:43] VITALS: BP 130/68
== END 2020-03-17 09:15 | disposition home or self-care (01) ==
LOC: ORWHC2ENDO 06:48
PROVIDERS: ATTEND Internal Medicine
DX: Z12.11 Encounter for screening for malignant neoplasm of colon (principal); K64.8 Other hemorrhoids; K62.89 Other specified diseases of anus and rectum; D12.2 Benign neoplasm of ascending colon; D12.3 Benign neoplasm of transverse colon; D12.4 Benign neoplasm of descending colon; K63.5 Polyp of colon; I10 Essential (primary) hypertension; I25.10 Atherosclerotic heart disease of native coronary artery without angina pectoris; G47.33 Obstructive sleep apnea (adult) (pediatric); E11.9 Type 2 diabetes mellitus without complications; N28.9 Disorder of kidney and ureter, unspecified; Q60.0 Renal agenesis, unilateral; Z87.891 Personal history of nicotine dependence; I99.8 Other disorder of circulatory system; Z79.82 Long term (current) use of aspirin; Z79.899 Other long term (current) drug therapy; Z90.49 Acquired absence of other specified parts of digestive tract; Z96.652 Presence of left artificial knee joint; Z79.891 Long term (current) use of opiate analgesic; Z79.4 Long term (current) use of insulin
CPT/HCPCS: 88305; 45380; 45385; J2405; J2001; J2704

== ENCOUNTER → 2020-03-21 | Outpatient (CLI) | payer MEDICARE ==
--- NOTE | 2020-03-21 15:21 | US ---
EXAMINATION TYPE: US duplex aorta DATE OF EXAM: 03/21/2020 COMPARISON: NONE CLINICAL HISTORY: Z13.6 screening for cardiovascular disorders. AAA screening exam limited due to bod y habitus. EXAM MEASUREMENTS: Abdominal Aorta: Proximal: 3.0 x 3.0 cm Mid: 3.0 x 2.6 cm Distal: 2.8 x 2.4 cm Bifurcation: Obscured by bowel gas. IMPRESSION: 1. No suspicious aneurysm or fusiform prominence abdominal aorta.
== END | disposition home or self-care (01) ==
LOC: RADUSWWP 14:43
PROVIDERS: ATTEND Family Medicine
DX: Z13.6 Encounter for screening for cardiovascular disorders (principal)
CPT/HCPCS: 93979

== ENCOUNTER → 2020-03-21 | Outpatient (CLI) | payer MEDICARE ==
--- NOTE | 2020-03-21 15:24 | US ---
EXAMINATION TYPE: US kidneys/renal and bladder DATE OF EXAM: 03/21/2020 COMPARISON: NONE CLINICAL HISTORY: N18.3 CKD Stage 3. Right kidney removed in 2007 for CA. CKD stage 3 EXAM MEASUREMENTS: Right Kidney: Surgically absent Left Kidney: 15 x 6.4 x 5.5 cm No abnormality within the right renal bed is evident. Right Kidney: Surgically absent Left Kidney: No hydronephrosis or masses seen Bladder: Anechoic Bilateral Jets seen: no IMPRESSION: 1. No recurrent masses right renal bed. 2. Left kidney appears unremarkable.
== END | disposition home or self-care (01) ==
LOC: RADUSWWP 14:46
PROVIDERS: ATTEND Internal Medicine
DX: N18.3 Chronic kidney disease, stage 3 (moderate) (principal)
CPT/HCPCS: 76770

== ENCOUNTER 2020-09-24 12:02 | Emergency (ER) | payer MEDICARE ==
--- NOTE | 2020-09-24 12:45 | ED ---
General Adult HPI - General Chief complaint: Extremity Problem,Nontraumatic Stated complaint: Male [facility] Time Seen by Provider: 09/24/20 12:40 Source: patient, family Mode of arrival: ambulatory Limitations: no limitations - History of Present Illness Initial comments: Patient presents to the ED with his for evaluation. Patient states that he has had waxing and waning diffuse scrotal swelling and lower extremity edema over the past couple of months. Patient states that his scrotal swelling and lower extremity edema have increased over the past couple of weeks. Patient also admits to having diffuse scrotal pain. Patient denies having any other site of pain. Patient states that he has renal failure, and he states that he has had discussions with his bulker about being started on hemodialysis. Patient denies trauma or injury, fever or chills, headache, focal neuro deficit, chest pain or pressure, dyspnea, palpitations, dizziness, abdominal pain, nausea/vomiting/diarrhea, dysuria/hematuria/urinary symptoms, decreased urine output, leg or calf pain, or any other symptoms or complaints. - Related Data Home Medications Medication Instructions Recorded Confirmed Aspirin 81 mg PO DAILY 05/19/14 09/24/20 Insulin NPL/Insulin Lispro 60 unit SQ QA 05/19/14 09/24/20 [humaLOG MIX 75-25 VIAL] Insulin NPL/Insulin Lispro 70 unit SQ HS 05/19/14 09/24/20 [humaLOG MIX 75-25 VIAL] Cholecalciferol [Vitamin D3 (25 2,000 unit PO DAILY 05/14/17 09/24/20 Mcg = 1000 Iu)] Doxazosin Mesylate [Cardura] 8 mg PO DAILY 05/14/17 09/24/20 calcitrioL [Calcitriol] 1 tab PO MOWEFR 08/12/20 09/24/20 lisinopriL 40 mg PO BID 08/12/20 09/24/20 Furosemide [Lasix] 40 mg PO BID 08/18/20 09/24/20 Doxazosin Mesylate [Cardura] 4 mg PO HS 09/24/20 09/24/20 Fish Oil/Dha/Epa [Fish Oil 1,200 2 cap PO DAILY 09/24/20 09/24/20 mg Fish Oil] amLODIPine [Norvasc] 10 mg PO HS 09/24/20 09/24/20 Allergies Allergy/AdvReac Type Severity Reaction Status Date / Time No Known Allergies Allergy Verified 09/24/20 13:59 Review of Systems ROS Statement: Those systems with pertinent positive or pertinent negative responses have been documented in the HPI. ROS Other: All systems not noted in ROS Statement are negative. Past Medical History Past Medical History: Cancer, Diabetes Mellitus, Hypertension, Renal Disease History of Any Multi-Drug Resistant Organisms: None Reported Past Surgical History: No Surgical Hx Reported Additional Past Surgical History / Comment(s): colon cancer Past Anesthesia/Blood Transfusion Reactions: No Reported Reaction Past Psychological History: No Psychological Hx Reported Smoking Status: Former smoker Past Alcohol Use History: None Reported Past Drug Use History: None Reported - Past Family History Mother Family Medical History: Diabetes Mellitus Father Family Medical History: Coronary Artery Disease (CAD) General Exam Limitations: no limitations General appearance: alert, in no apparent distress Head exam: Present: atraumatic, normocephalic Eye exam: Present: normal appearance, EOMI ENT exam: Present: mucous membranes moist Neck exam: Present: other (Trachea is in midline) Respiratory exam: Present: normal lung sounds bilaterally. Absent: respiratory distress, wheezes, rales, rhonchi, stridor Cardiovascular Exam: Present: regular rate, irregular rhythm, normal heart sounds, other (Normal radial pulses bilaterally) GI/Abdominal exam: Present: soft, other (Obese abdomen). Absent: tenderness, guarding exam: Present: other (Diffuse edematous scrotal swelling and tenderness; no erythema or fluctuance is appreciated) Extremities exam: Present: other (Bilateral lower extremity/pedal pitting edema; bilateral lower leg chronic venous stasis dermatitis; negative Homans sign bilaterally). Absent: tenderness, calf tenderness Neurological exam: Present: alert, oriented X3. Absent: motor sensory deficit Psychiatric exam: Present: normal affect, normal mood Skin exam: Present: warm, dry, intact, normal color Course Vital Signs 09/24/20 09/24/20 12:09 14:01 Temperature 98.9 F Pulse Rate 67 52 L Respiratory 20 20 Rate Blood Pressure 191/74 139/76 O2 Sat by Pulse 97 96 Oximetry - Reevaluation(s) Reevaluation #1: 09/24/20 15:10 Patient denies development of any new symptoms while in the ED. Patient remains alert and breathing comfortably with a normal room air oxygen saturation. Patient and are aware the patient's test results, and patient feels comfortable going home with his at this time. Patient states that he is a [place] of his Mobitz 1 second-degree heart block, and he states that he sees a manager search for it. Patient was counseled about Mobitz 1 second-degree heart block's, renal insufficiency, hydroceles and peripheral edema (elevation and compression). Patient was instructed to, and agrees to, follow-up closely with his primary care provider, as well as his bulker (Dr. Vizcarra). Patient was clearly explained return and follow-up instructions, and he was instructed to have a low threshold for return to the ED should his symptoms worsen. Patient feels comfortable with this plan. EKG Findings - EKG Comments: EKG Findings:: Sinus rhythm with second-degree AV block (Mobitz 1), ventricular rate of 54 bpm, QRS duration of 150 ms, normal QT interval, leftward axis, right bundle branch block, no ST or T-wave abnormality Medical Decision Making - Medical Decision Making I suspect that the patient's increased peripheral edema and scrotal swelling are likely secondary to his chronic renal insufficiency. Patient states that his bulker (Dr. Vizcarra) has recommended against diuretic treatment given his chronic renal insufficiency, and I have advised that he discuss further treatment of his peripheral edema/scrotal swelling and renal insufficiency with his bulker. Patient's ultrasound is negative for testicular torsion. Patient is breathing comfortably with a normal room air oxygen saturation. Patient states that he is aware of his Mobitz 1 second-degree heart block, and he seen a manager search for. Will discharge patient home with his at this time. Patient feels comfortable with this plan. - Lab Data Result diagrams: 09/24/20 13:19 09/24/20 13:19 Lab Results 09/24/20 09/24/20 09/24/20 Range/Units 13:19 13:19 13:19 WBC 3.8 (3.8-10.6) k/uL RBC 3.62 L (4.30-5.90) m/uL Hgb 11.1 L (13.0-17.5) gm/dL Hct 34.0 L (39.0-53.0) % MCV 93.8 (80.0-100.0) fL MCH 30.7 (25.0-35.0) pg MCHC 32.8 (31.0-37.0) g/dL RDW 13.7 (11.5-15.5) % Plt Count 98 L (150-450) k/uL MPV 8.2 Neutrophils % 72 % Lymphocytes % 17 % Monocytes % 6 % Eosinophils % 2 % Basophils % 1 % Neutrophils # 2.8 (1.3-7.7) k/uL Lymphocytes # 0.7 L (1.0-4.8) k/uL Monocytes # 0.2 (0-1.0) k/uL Eosinophils # 0.1 (0-0.7) k/uL Basophils # 0.0 (0-0.2) k/uL Manual Slide Review Performed RBC Morphology Normal PT 10.9 (9.0-12.0) sec INR 1.0 (<1.2) APTT 24.6 (22.0-30.0) sec Sodium 141 (137-145) mmol/L Potassium 4.6 (3.5-5.1) mmol/L Chloride 111 H (98-107) mmol/L Carbon Dioxide 22 (22-30) mmol/L Anion Gap 8 mmol/L BUN 45 H (9-20) mg/dL Creatinine 3.12 H (0.66-1.25) mg/dL Est GFR (CKD-EPI)AfAm 23 (>60 ml/min/1.73 sqM) Est GFR (CKD-EPI)NonAf 20 (>60 ml/min/1.73 sqM) Glucose 74 (74-99) mg/dL Plasma Lactic Acid Jovany (0.7-2.0) mmol/L Calcium 8.9 (8.4-10.2) mg/dL Total Bilirubin 0.6 (0.2-1.3) mg/dL AST 24 (17-59) U/L ALT 13 (4-49) U/L Alkaline Phosphatase 63 (38-126) U/L Troponin I (0.000-0.034) ng/mL NT-Pro-B Natriuret Pep pg/mL Total Protein 6.7 (6.3-8.2) g/dL Albumin 3.7 (3.5-5.0) g/dL Urine Color Urine Appearance (Clear) Urine pH (5.0-8.0) Ur Specific [place] (1.001-1.035) Urine Protein (Negative) Urine Glucose (UA) (Negative) Urine Ketones (Negative) Urine Blood (Negative) Urine Nitrite (Negative) Urine Bilirubin (Negative) Urine Urobilinogen (<2.0) mg/dL Ur Leukocyte Esterase (Negative) 09/24/20 09/24/20 09/24/20 Range/Units 13:19 13:19 13:19 WBC (3.8-10.6) k/uL RBC (4.30-5.90) m/uL Hgb (13.0-17.5) gm/dL Hct (39.0-53.0) % MCV (80.0-100.0) fL MCH (25.0-35.0) pg MCHC (31.0-37.0) g/dL RDW (11.5-15.5) % Plt Count (150-450) k/uL MPV Neutrophils % % Lymphocytes % % Monocytes % % Eosinophils % % Basophils % % Neutrophils # (1.3-7.7) k/uL Lymphocytes # (1.0-4.8) k/uL Monocytes # (0-1.0) k/uL Eosinophils # (0-0.7) k/uL Basophils # (0-0.2) k/uL Manual Slide Review RBC Morphology PT (9.0-12.0) sec INR (<1.2) APTT (22.0-30.0) sec Sodium (137-145) mmol/L Potassium (3.5-5.1) mmol/L Chloride (98-107) mmol/L Carbon Dioxide (22-30) mmol/L Anion Gap mmol/L BUN (9-20) mg/dL Creatinine (0.66-1.25) mg/dL Est GFR (CKD-EPI)AfAm (>60 ml/min/1.73 sqM) Est GFR (CKD-EPI)NonAf (>60 ml/min/1.73 sqM) Glucose (74-99) mg/dL Plasma Lactic Acid Jovany 0.7 (0.7-2.0) mmol/L Calcium (8.4-10.2) mg/dL Total Bilirubin (0.2-1.3) mg/dL AST (17-59) U/L ALT (4-49) U/L Alkaline Phosphatase (38-126) U/L Troponin I <0.012 (0.000-0.034) ng/mL NT-Pro-B Natriuret Pep 1750 pg/mL Total Protein (6.3-8.2) g/dL Albumin (3.5-5.0) g/dL Urine Color Urine Appearance (Clear) Urine pH (5.0-8.0) Ur Specific [place] (1.001-1.035) Urine Protein (Negative) Urine Glucose (UA) (Negative) Urine Ketones (Negative) Urine Blood (Negative) Urine Nitrite (Negative) Urine Bilirubin (Negative) Urine Urobilinogen (<2.0) mg/dL Ur Leukocyte Esterase (Negative) 09/24/20 Range/Units 14:05 WBC (3.8-10.6) k/uL RBC (4.30-5.90) m/uL Hgb (13.0-17.5) gm/dL Hct (39.0-53.0) % MCV (80.0-100.0) fL MCH (25.0-35.0) pg MCHC (31.0-37.0) g/dL RDW (11.5-15.5) % Plt Count (150-450) k/uL MPV Neutrophils % % Lymphocytes % % Monocytes % % Eosinophils % % Basophils % % Neutrophils # (1.3-7.7) k/uL Lymphocytes # (1.0-4.8) k/uL Monocytes # (0-1.0) k/uL Eosinophils # (0-0.7) k/uL Basophils # (0-0.2) k/uL Manual Slide Review RBC Morphology PT (9.0-12.0) sec INR (<1.2) APTT (22.0-30.0) sec Sodium (137-145) mmol/L Potassium (3.5-5.1) mmol/L Chloride (98-107) mmol/L Carbon Dioxide (22-30) mmol/L Anion Gap mmol/L BUN (9-20) mg/dL Creatinine (0.66-1.25) mg/dL Est GFR (CKD-EPI)AfAm (>60 ml/min/1.73 sqM) Est GFR (CKD-EPI)NonAf (>60 ml/min/1.73 sqM) Glucose (74-99) mg/dL Plasma Lactic Acid Jovany (0.7-2.0) mmol/L Calcium (8.4-10.2) mg/dL Total Bilirubin (0.2-1.3) mg/dL AST (17-59) U/L ALT (4-49) U/L Alkaline Phosphatase (38-126) U/L Troponin I (0.000-0.034) ng/mL NT-Pro-B Natriuret Pep pg/mL Total Protein (6.3-8.2) g/dL Albumin (3.5-5.0) g/dL Urine Color Colorless Urine Appearance Clear (Clear) Urine pH 5.0 (5.0-8.0) Ur Specific [place] 1.007 (1.001-1.035) Urine Protein Negative (Negative) Urine Glucose (UA) Negative (Negative) Urine Ketones Negative (Negative) Urine Blood Negative (Negative) Urine Nitrite Negative (Negative) Urine Bilirubin Negative (Negative) Urine Urobilinogen <2.0 (<2.0) mg/dL Ur Leukocyte Esterase Negative (Negative) - Radiology Data Radiology results: report reviewed (Chest x-ray: Mild cardiomegaly, increased interstitial prominence, no focal infiltrate; scrotal ultrasound: There are bilateral hydroceles and larger on the right side, simple small cyst in the left testicle, no evidence of epididymal mass, no testicular torsion) Disposition Clinical Impression: Peripheral edema, Second degree AV block, Mobitz type I, Chronic renal insufficiency, Bilateral hydrocele Disposition: HOME SELF-CARE Condition: Stable Instructions (If sedation given, give patient instructions): Hydrocele (ED), Chronic Kidney Disease (ED), Edema (ED) Additional Instructions: Return to the ER immediately should you develop new or worsening pain, a fever, difficulty urinating or decreased urination, chest pain, shortness of breath, feeling dizzy or faint, or new or worsening symptoms. Follow up closely with your primary care provider, as well as your bulker. Is patient prescribed a controlled substance at d/c from ED?: No Referrals: Harsh Garcia MD [Primary Care Provider] - 1-2 days Ilan Vizcarra DO [STAFF PHYSICIAN] - 1-2 days Time of Disposition: 15:19
[2020-09-24 14:00] LABS: Partial Thromboplastin Time 24.6 sec (22.0-30.0); Prothrombin Time 10.9 sec (9.0-12.0)
[2020-09-24 14:02] LABS: Albumin 3.7 g/dL (3.5-5.0); Calcium 8.9 mg/dL (8.4-10.2); Potassium 4.6 mmol/L (3.5-5.1); Total Bilirubin 0.6 mg/dL (0.2-1.3); Total Protein 6.7 g/dL (6.3-8.2)
--- NOTE | 2020-09-24 14:15 | XR ---
EXAMINATION TYPE: XR chest 2V DATE OF EXAM: 09/24/2020 COMPARISON: 07/17/2018 HISTORY: 65-year-old male genital edema. TECHNIQUE: PA and lateral views FINDINGS: Heart mildly enlarged. Mild interstitial prominence appears slightly increased. No corrie consolidatio n or pleural effusion. IMPRESSION: Mild cardiomegaly and increased interstitial prominence. Correlate for mild pulmonary vascular conges tion, bronchitis, chronic asthma. No focal infiltrate.
[2020-09-24 14:22] LABS: Appearance,Urine Clear (Clear); Bilirubin,Urine Negative (Negative); Blood,Urine Negative (Negative); Color,Urine Colorless; Glucose,Urine (UA) Negative (Negative); Ketones,Urine Negative (Negative); Leukocyte Esterase,Urine Negative (Negative); Nitrite,Urine Negative (Negative); Protein,Urine Negative (Negative); Specific Gravity,Urine 1.007 (1.001-1.035); Urobilinogen,Urine <2.0 mg/dL (<2.0)
--- NOTE | 2020-09-24 14:43 | US ---
EXAMINATION TYPE: US scrotum with doppler. Grayscale and color Doppler Duplex imaging performed of t lisa scrotum. DATE OF EXAM: 09/24/2020 COMPARISON: NONE CLINICAL HISTORY: scrotal swelling. edema, pain bilaterally EXAM MEASUREMENTS: TESTICLES: Right Testicle: 4.5 x 3.4 x 3.6 cm Left Testicle: 4.4 x 3.1 x 3.3 cm EPIDIDYMIS HEAD: Right Epididymis: 1.7 cm Left Epididymis: 2.0 cm Doppler performed to assess for testicular vascularity; good bilateral color flow and waveforms are s een. There is no evidence of testicular torsion. Presence of hydroceles: fluid collection lateral to right testicle = 4.5cm, small fluid collection s urrounding left testicle Presence of varicoceles: no heterogeneous left epididymis cystic area left testicle = 0.6 x 0.6 x 0.6cm large amount of edema within scrotal sac IMPRESSION: There are bilateral hydroceles and larger on the right side. Simple small cyst in the left testicle. No evidence of epididymal mass. No testicular torsion.
[2020-09-24 14:44] LABS: Basophils % (A) 1 %; Eosinophils # (A) 0.1 k/uL (0-0.7); Eosinophils % (A) 2 %; HGB 11.1 gm/dL (13.0-17.5); Lymphocytes # (A) 0.7 k/uL (1.0-4.8); Lymphocytes % (A) 17 %; MCH 30.7 pg (25.0-35.0); MCHC 32.8 g/dL (31.0-37.0); MCV 93.8 fL (80.0-100.0); Mean Platelet Volume 8.2; Monocytes # (A) 0.2 k/uL (0-1.0); Monocytes % (A) 6 %; Neutrophils # (A) 2.8 k/uL (1.3-7.7); Neutrophils % (A) 72 %; RBC 3.62 m/uL (4.30-5.90); RDW 13.7 % (11.5-15.5); WBC 3.8 k/uL (3.8-10.6)
[2020-09-24 15:18] LABS: Platelet Count 98 k/uL (150-450)
[2020-09-24 15:36] VITALS: BP 134/69; PULSE 69; RESP 18; TEMP 98
== END 2020-09-24 15:36 | disposition home or self-care (01) ==
LOC: EC 12:02
DX: N43.3 Hydrocele, unspecified (principal); I44.1 Atrioventricular block, second degree; I12.9 Hypertensive chronic kidney disease with stage 1 through stage 4 chronic kidney disease, or unspecified chronic kidney disease; E11.22 Type 2 diabetes mellitus with diabetic chronic kidney disease; N18.9 Chronic kidney disease, unspecified; Z79.4 Long term (current) use of insulin; Z79.82 Long term (current) use of aspirin; Z79.899 Other long term (current) drug therapy; Z87.891 Personal history of nicotine dependence
CPT/HCPCS: 36415; 71046; 76870; 80053; 81003; 83605; 83880; 84484; 85025; 85610; 85730; 93005; 93975; 99284

== ENCOUNTER 2020-11-09 13:54 | Observation (INO) | payer MEDICARE ==
[2020-11-09 14:46] LABS: Basophils # (A) 0.1 k/uL (0-0.2); Basophils % (A) 1 %; Eosinophils # (A) 0.1 k/uL (0-0.7); Eosinophils % (A) 2 %; HCT 29.4 % (39.0-53.0); HGB 10.5 gm/dL (13.0-17.5); Lymphocytes # (A) 0.8 k/uL (1.0-4.8); Lymphocytes % (A) 18 %; MCH 31.8 pg (25.0-35.0); MCHC 35.8 g/dL (31.0-37.0); MCV 89.1 fL (80.0-100.0); Mean Platelet Volume 8.9; Monocytes # (A) 0.3 k/uL (0-1.0); Monocytes % (A) 7 %; Neutrophils # (A) 3.2 k/uL (1.3-7.7); Neutrophils % (A) 71 %; Platelet Count 131 k/uL (150-450); RDW 12.9 % (11.5-15.5); WBC 4.5 k/uL (3.8-10.6)
[2020-11-09 14:59] LABS: Albumin 4.1 g/dL (3.5-5.0); Calcium 8.8 mg/dL (8.4-10.2); Potassium 2.9 mmol/L (3.5-5.1); Total Protein 7.1 g/dL (6.3-8.2)
[2020-11-09 15:04] LABS: Partial Thromboplastin Time 23.8 sec (22.0-30.0); Prothrombin Time 10.5 sec (9.0-12.0)
--- NOTE | 2020-11-09 15:16 | XR ---
EXAMINATION TYPE: XR chest 2V DATE OF EXAM: 11/09/2020 COMPARISON: This x-ray 09/24/2020 HISTORY: Weakness TECHNIQUE: Frontal and lateral views of the chest are obtained. FINDINGS: There is no focal air space opacity, pleural effusion, or pneumothorax seen. The cardiac silhouette size is stable, heart is enlarged. There is been interval placement of a left jugular cent ral venous catheter, distal tip the catheter is near the cavoatrial junction level. There are overlyi ng artifacts. Strand-like densities at the left lung base may reflect atelectasis or scar. There is improved interstitium as compared to prior exam. The osseous structures are stable, mild anterior wed ging noted in the vertebral body near the thoracolumbar junction. IMPRESSION: Stable cardiomegaly. Some improvement in volume status is suspected as compared to prior exam.
[2020-11-09] MEDS ORDERED: ONDANSETRON 4 MG/2 ML VIAL IVP STA (16:26)
[2020-11-09] MEDS ORDERED: SODIUM CHLORIDE 0.9% 1,000 ML IV STA (16:26)
--- NOTE | 2020-11-09 16:52 | ED ---
Weakness HPI - General Chief complaint: Weakness Stated complaint: Sent from Dr Willams Seen by Provider: 11/09/20 16:10 Source: patient, family Mode of arrival: wheelchair Limitations: no limitations - History of Present Illness Initial comments: Patient is a 65-year-old male with history of diabetes, hypertension, kidney disease, started dialysis 2 weeks ago, presenting to the emergency Department with complaints of increased weakness, nausea and vomiting is worsening over the past couple weeks. He has no appetite, and has been battling vomiting worsening over the past few days. He's had about 5-6 episodes of vomiting just today. They called Dr. Vizcarra who recommended coming into the ER for evaluation. Patient is also in need of a pacemaker, they said it was delayed secondary to putting dialysis port on the left side of chest. He does have a fistula present in the right arm however is not functional yet. He is doing dialysis Saturday, he did have dialysis today. Patient denies any fevers or chills, he denies any chest pain or shortness of breath. No abdominal pain. Patient has no further complaints at this time. - Related Data Home Medications Medication Instructions Recorded Confirmed Aspirin 81 mg PO DAILY 05/19/14 11/09/20 Insulin NPL/Insulin Lispro See Protocol SQ BID 05/19/14 11/09/20 [humaLOG MIX 75-25 VIAL] Doxazosin Mesylate [Cardura] 8 mg PO DAILY 05/14/17 11/09/20 calcitrioL [Calcitriol] 0.5 mcg PO MO 08/12/20 11/09/20 lisinopriL 20 mg PO BID 08/12/20 11/09/20 Doxazosin Mesylate [Cardura] 4 mg PO HS 09/24/20 11/09/20 Fish Oil/Dha/Epa [Fish Oil 1,200 2 cap PO DAILY 09/24/20 11/09/20 mg Fish Oil] amLODIPine [Norvasc] 10 mg PO DAILY 09/24/20 11/09/20 Cholecalciferol [Vitamin D3 (25 50 mcg PO DAILY 11/09/20 11/09/20 Mcg = 1000 Iu)] Torsemide [Demadex] 20 mg PO BID 11/09/20 11/09/20 hydrALAZINE HCL 50 mg PO BID 11/09/20 11/09/20 Allergies Allergy/AdvReac Type Severity Reaction Status Date / Time No Known Allergies Allergy Verified 11/09/20 17:05 Review of Systems ROS Statement: Those systems with pertinent positive or pertinent negative responses have been documented in the HPI. ROS Other: All systems not noted in ROS Statement are negative. Past Medical History Past Medical History: Cancer, Diabetes Mellitus, Hypertension, Renal Disease History of Any Multi-Drug Resistant Organisms: None Reported Past Surgical History: No Surgical Hx Reported Additional Past Surgical History / Comment(s): colon cancer Past Anesthesia/Blood Transfusion Reactions: No Reported Reaction Past Psychological History: No Psychological Hx Reported Smoking Status: Former smoker Past Alcohol Use History: None Reported Past Drug Use History: None Reported - Past Family History Mother Family Medical History: Diabetes Mellitus Father Family Medical History: Coronary Artery Disease (CAD) General Exam - General Exam Comments Initial Comments: GENERAL: Patient is nontoxic and in no acute distress, looks very fatigued. HEAD: Atraumatic, normocephalic. EYES: Pupils equal round and reactive to light, extraocular movements intact, sclera anicteric, conjunctiva are normal. Eyelids were unremarkable. ENT: TMs normal, nares patent, oropharynx clear without exudates. Moist mucous membranes. NECK: Normal range of motion, supple without lymphadenopathy or JVD. LUNGS: Unlabored respirations. Breath sounds clear to auscultation bilaterally and equal. No wheezes rales or rhonchi. HEART: Bradycardic rate and rhythm without murmurs, rubs or gallops. ABDOMEN: Soft, nontender, normoactive bowel sounds. No guarding, no rebound. No masses appreciated. : Deferred MUSCULOSKELETAL: Normal extremities with adequate strength and normal range of motion, no pitting or edema. No clubbing or cyanosis. NEUROLOGICAL: Patient is alert and oriented x 3. Motor and sensory are also intact. Cranial nerves II through XII grossly intact. Symmetrical smile. Normal speech, normal gait. PSYCH: Normal mood, normal affect. SKIN: Warm, Dry, normal turgor, no rashes or lesions noted. Limitations: no limitations Course Vital Signs 11/09/20 11/09/20 11/09/20 13:59 16:31 17:00 Temperature 97.8 F Pulse Rate 69 43 L 48 L Respiratory 16 18 12 Rate Blood Pressure 91/42 127/55 127/55 O2 Sat by Pulse 97 98 97 Oximetry EKG Findings - EKG Comments: EKG Findings:: Sinus rhythm with second-degree AV block, right bundle mari block, left posterior fascicular block, no signs of acute ischemia process. Ventricular rate 57, QRS duration 156, QT 538. This is similar to his previous on 09/24/2020. Medical Decision Making - Medical Decision Making Patient is a 65-year-old male with history of hypertension, diabetes, kidney disease on dialysis, presenting for weakness, nausea and vomiting for the last couple weeks. Patient's initial vitals were stable, his heart rate has been bradycardic, 38 to mid 40s. EKG shows sinus rhythm with second-degree AV block, versus similar to his previous. Labs show a normal white count, hemoglobin is stable, sodium and potassium are low, potassium is 2.9. Creatinine is 4.15, troponin elevated 0.037. His x-ray today shows stable cardiomegaly, some improvement volume status. Patient will be admitted for bradycardia, renal failure, hypokalemia. Patient was accepted by Dr. Maira Velazquez' group, with onset to Dr. Vizcarra and cardio. Case discussed with Dr. Briceño. - Lab Data Result diagrams: 11/09/20 14:35 11/09/20 14:35 Lab Results 11/09/20 11/09/20 11/09/20 Range/Units 14:35 14:35 14:35 WBC 4.5 (3.8-10.6) k/uL RBC 3.30 L (4.30-5.90) m/uL Hgb 10.5 L (13.0-17.5) gm/dL Hct 29.4 L (39.0-53.0) % MCV 89.1 (80.0-100.0) fL MCH 31.8 (25.0-35.0) pg MCHC 35.8 (31.0-37.0) g/dL RDW 12.9 (11.5-15.5) % Plt Count 131 L (150-450) k/uL MPV 8.9 Neutrophils % 71 % Lymphocytes % 18 % Monocytes % 7 % Eosinophils % 2 % Basophils % 1 % Neutrophils # 3.2 (1.3-7.7) k/uL Lymphocytes # 0.8 L (1.0-4.8) k/uL Monocytes # 0.3 (0-1.0) k/uL Eosinophils # 0.1 (0-0.7) k/uL Basophils # 0.1 (0-0.2) k/uL PT 10.5 (9.0-12.0) sec INR 1.0 (<1.2) APTT 23.8 (22.0-30.0) sec Sodium 136 L (137-145) mmol/L Potassium 2.9 L (3.5-5.1) mmol/L Chloride 95 L (98-107) mmol/L Carbon Dioxide 33 H (22-30) mmol/L Anion Gap 8 mmol/L BUN 16 (9-20) mg/dL Creatinine 4.15 H (0.66-1.25) mg/dL Est GFR (CKD-EPI)AfAm 16 (>60 ml/min/1.73 sqM) Est GFR (CKD-EPI)NonAf 14 (>60 ml/min/1.73 sqM) Glucose 159 H (74-99) mg/dL Plasma Lactic Acid Jovany (0.7-2.0) mmol/L Calcium 8.8 (8.4-10.2) mg/dL Magnesium (1.6-2.3) mg/dL Total Bilirubin 1.0 (0.2-1.3) mg/dL AST 27 (17-59) U/L ALT 14 (4-49) U/L Alkaline Phosphatase 74 (38-126) U/L Troponin I (0.000-0.034) ng/mL Total Protein 7.1 (6.3-8.2) g/dL Albumin 4.1 (3.5-5.0) g/dL 11/09/20 11/09/20 11/09/20 Range/Units 14:35 14:35 14:35 WBC (3.8-10.6) k/uL RBC (4.30-5.90) m/uL Hgb (13.0-17.5) gm/dL Hct (39.0-53.0) % MCV (80.0-100.0) fL MCH (25.0-35.0) pg MCHC (31.0-37.0) g/dL RDW (11.5-15.5) % Plt Count (150-450) k/uL MPV Neutrophils % % Lymphocytes % % Monocytes % % Eosinophils % % Basophils % % Neutrophils # (1.3-7.7) k/uL Lymphocytes # (1.0-4.8) k/uL Monocytes # (0-1.0) k/uL Eosinophils # (0-0.7) k/uL Basophils # (0-0.2) k/uL PT (9.0-12.0) sec INR (<1.2) APTT (22.0-30.0) sec Sodium (137-145) mmol/L Potassium (3.5-5.1) mmol/L Chloride (98-107) mmol/L Carbon Dioxide (22-30) mmol/L Anion Gap mmol/L BUN (9-20) mg/dL Creatinine (0.66-1.25) mg/dL Est GFR (CKD-EPI)AfAm (>60 ml/min/1.73 sqM) Est GFR (CKD-EPI)NonAf (>60 ml/min/1.73 sqM) Glucose (74-99) mg/dL Plasma Lactic Acid Jovany 1.4 (0.7-2.0) mmol/L Calcium (8.4-10.2) mg/dL Magnesium 1.8 (1.6-2.3) mg/dL Total Bilirubin (0.2-1.3) mg/dL AST (17-59) U/L ALT (4-49) U/L Alkaline Phosphatase (38-126) U/L Troponin I 0.037 H* (0.000-0.034) ng/mL Total Protein (6.3-8.2) g/dL Albumin (3.5-5.0) g/dL Disposition Clinical Impression: Renal failure, Hypokalemia, Bradycardia, Elevated troponin Disposition: ADMITTED IP TO THIS [facility] Condition: Stable Is patient prescribed a controlled substance at d/c from ED?: No Referrals: Harsh Garcia MD [Primary Care Provider] - 1-2 days Decision Date: 11/09/20 Decision Time: 17:22
[2020-11-09] MEDS ORDERED: POTASSIUM CHLORIDE 20 MEQ in WATER FOR INJECTION 1 100ML.BAG IVPB STA (17:15)
[2020-11-09] MEDS ORDERED: POTASSIUM CHLORIDE ER 20 MEQ TAB.ER PO STA (17:15)
[2020-11-09] MEDS ORDERED: NALOXONE 0.4 MG/ML 1 ML VIAL IV PRN (17:19)
[2020-11-09] MEDS ORDERED: ACETAMINOPHEN TAB 325 MG TAB PO PRN (17:19)
[2020-11-09] MEDS ORDERED: ONDANSETRON 4 MG/2 ML VIAL IVP PRN (17:19)
--- NOTE | 2020-11-09 19:18 | P.HPIM ---
History of Present Illness 65-year-old male was sent in the hospital by registered massage therapist as patient was comparing of generalized weakness has been going on for 2 weeks since he was started on hemodialysis. Patient was a having vomiting as well multiple episodes for last few days. The symptoms are expected to after initiation of dialysis but expect expected to improve. Patient ER found to have several flat abnormalities including the potassium from nausea vomiting and also bradycardia and hypotension because of which patient is being admitted. Patient was told he needs a pacemaker by cardiology patient has a second-degree type I AV block at this time patient symptoms are probably not from this. Review of Systems REVIEW OF SYSTEMS: CONSTITUTIONAL: No fever, no malaise, no fatigue. HEENT: No recent visual problems or hearing problems. Denied any sore throat. CARDIOVASCULAR: No chest pain, orthopnea, PND, no palpitations, no syncope. PULMONARY: No shortness of breath, no cough, no hemoptysis. GASTROINTESTINAL: No diarrhea,no abdominal pain. NEUROLOGICAL: No headaches, no weakness, no numbness. HEMATOLOGICAL: Denies any bleeding or petechiae. GENITOURINARY: Denies any burning micturition, frequency, or urgency. MUSCULOSKELETAL/RHEUMATOLOGICAL: Denies any joint pain, swelling, or any muscle pain. ENDOCRINE: Denies any polyuria or polydipsia. The rest of the 14-point review of systems is negative. Past Medical History Past Medical History: Cancer, Diabetes Mellitus, Hypertension, Renal Disease History of Any Multi-Drug Resistant Organisms: None Reported Past Surgical History: No Surgical Hx Reported Additional Past Surgical History / Comment(s): colon cancer Past Anesthesia/Blood Transfusion Reactions: No Reported Reaction Past Psychological History: No Psychological Hx Reported Smoking Status: Former smoker Past Alcohol Use History: None Reported Past Drug Use History: None Reported - Past Family History Mother Family Medical History: Diabetes Mellitus Father Family Medical History: Coronary Artery Disease (CAD) Medications and Allergies Home Medications Medication Instructions Recorded Confirmed Type Aspirin 81 mg PO DAILY 05/19/14 11/09/20 History Insulin NPL/Insulin Lispro See Protocol SQ BID 05/19/14 11/09/20 History [humaLOG MIX 75-25 VIAL] Doxazosin Mesylate [Cardura] 8 mg PO DAILY 05/14/17 11/09/20 History calcitrioL [Calcitriol] 0.5 mcg PO MO 08/12/20 11/09/20 History lisinopriL 20 mg PO BID 08/12/20 11/09/20 History Doxazosin Mesylate [Cardura] 4 mg PO HS 09/24/20 11/09/20 History Fish Oil/Dha/Epa [Fish Oil 1,200 2 cap PO DAILY 09/24/20 11/09/20 History mg Fish Oil] amLODIPine [Norvasc] 10 mg PO DAILY 09/24/20 11/09/20 History Cholecalciferol [Vitamin D3 (25 50 mcg PO DAILY 11/09/20 11/09/20 History Mcg = 1000 Iu)] Torsemide [Demadex] 20 mg PO BID 11/09/20 11/09/20 History hydrALAZINE HCL 50 mg PO BID 11/09/20 11/09/20 History Allergies Allergy/AdvReac Type Severity Reaction Status Date / Time No Known Allergies Allergy Verified 11/09/20 17:05 Physical Exam Vitals: Vital Signs Temp Pulse Resp BP Pulse Ox 11/09/20 18:30 48 L 17 130/51 93 L 11/09/20 18:00 52 L 20 130/64 75 L 11/09/20 17:30 50 L 18 129/52 94 L 11/09/20 17:00 48 L 12 127/55 97 11/09/20 16:31 43 L 18 127/55 98 11/09/20 13:59 97.8 F 69 16 91/42 97 Intake and Output 11/09/20 11/09/20 11/09/20 06:59 14:59 22:59 Other: Weight 127.459 kg PHYSICAL EXAMINATION: GENERAL: The patient is alert and oriented x3, not in any acute distress. Well developed, well nourished. HEENT: Pupils are round and equally reacting to light. EOMI. No scleral icterus. No conjunctival pallor. Normocephalic, atraumatic. No pharyngeal erythema. No thyromegaly. CARDIOVASCULAR: S1 and S2 present. No murmurs, rubs, or gallops. PULMONARY: Chest is clear to auscultation, no wheezing or crackles. ABDOMEN: Soft, nontender, nondistended, normoactive bowel sounds. No palpable organomegaly. MUSCULOSKELETAL: No joint swelling or deformity. EXTREMITIES: No cyanosis, clubbing, or pedal edema. NEUROLOGICAL: Gross neurological examination did not reveal any focal deficits. SKIN: No rashes. Results CBC & Chem 7: 11/09/20 14:35 11/09/20 14:35 Labs: Abnormal Lab Results - Last 24 Hours (Table) 11/09/20 11/09/20 11/09/20 Range/Units 14:35 14:35 14:35 RBC 3.30 L (4.30-5.90) m/uL Hgb 10.5 L (13.0-17.5) gm/dL Hct 29.4 L (39.0-53.0) % Plt Count 131 L (150-450) k/uL Lymphocytes # 0.8 L (1.0-4.8) k/uL Sodium 136 L (137-145) mmol/L Potassium 2.9 L (3.5-5.1) mmol/L Chloride 95 L (98-107) mmol/L Carbon Dioxide 33 H (22-30) mmol/L Creatinine 4.15 H (0.66-1.25) mg/dL Glucose 159 H (74-99) mg/dL Troponin I 0.037 H* (0.000-0.034) ng/mL Assessment and Plan Plan: - nausea vomiting: May be peptic ulcer disease or gastritis patient will be started on Protonix if he doesn't improve patient may need upper GI endoscopy at that time. -Generalized weakness: Secondary to end-stage renal disease -Cardiac arrhythmia, bradycardia: Patient presently has a second-degree type II AV block although patient in the past was told he needs pacemaker and unsure whether this contributed to his symptoms of for generalized weakness. -Hypertension: Patient is presently hypotensive hold off blood pressure medications and monitor blood pressure -Type 2 diabetes mellitus: Patient blood sugars has been running low because of which patient is refusing sliding scale at home which will be continued -End-stage renal disease fall probably a diabetic nephropathy -DVT prophylaxis with subcutaneous heparin
[2020-11-09 21:06] LABS: Glucose,Whole Blood 134 mg/dL (75-99)
[2020-11-09] MEDS: INSULIN ASPART (NovoLOG) 100 UNIT/ML VIAL SQ SCH (21:06)
[2020-11-09] MEDS: PANTOPRAZOLE 40 MG/10 ML VIAL IVP SCH (21:07)
[2020-11-09] MEDS: HEPARIN SODIUM,PORCINE/PF 5,000 UNIT/0.5 ML SYRINGE SQ SCH (21:08)
[2020-11-09 22:07] VITALS: RESP 16
[2020-11-10 06:17] LABS: Glucose,Whole Blood 138 mg/dL (75-99)
[2020-11-10] MEDS: INSULIN ASPART (NovoLOG) 100 UNIT/ML VIAL SQ SCH ×2 (06:58→12:30)
[2020-11-10 08:33] LABS: Calcium 8.9 mg/dL (8.4-10.2); Potassium 4.1 mmol/L (3.5-5.1)
[2020-11-10] MEDS ORDERED: ASPIRIN 81 MG PO SCH (09:00)
[2020-11-10] MEDS ORDERED: CHOLECALCIFEROL 25 MCG (1000 IU) TABLET PO SCH (09:00)
[2020-11-10] MEDS: PANTOPRAZOLE 40 MG/10 ML VIAL IVP SCH (09:29)
[2020-11-10] MEDS: HEPARIN SODIUM,PORCINE/PF 5,000 UNIT/0.5 ML SYRINGE SQ SCH (09:29)
--- NOTE | 2020-11-10 10:49 | P.CRDCN ---
History of Present Illness Consult date: 11/10/20 History of present illness: HISTORY OF PRESENT ILLNESS: This is a 65 year old male with a past medical history significant for end stage renal disease on hemodialysis, diabetes mellitus, hypertension, and bradycardia, . Patient follows in the office with Dr. Guevara. We have been asked to see the patient in consultation for bradycardia. Patient examined at the bedside. Patient was recently hospitalized and found to have second degree heart block. Patient has a left chest dialysis catheter. He also has a right arm shunt that he states he would be able to use in 5-6 weeks. He was evaluated in the office by Dr. Guevara earlier this month. Per patient, plans are for permanent pacemaker after his left chest dialysis catheter is removed. Patient states he went to dialysis yesterday. When he came home, he felt very tired, dizzy, and nauseous. He took his blood pressure which was 104/59 which the patient states is low for him. He reports he called Dr. Vizcarra who advised him to come to the hospital. This morning, the patient denies nausea or dizziness. He denies chest pain or pressure. He denies shortness of breath. EKG reveals second degree Type I heart block. Telemetry this morning appears to be second degree type II Chest xray stable cardiomegaly. Some improvement in volume status is suspected. Laboratory data: WBC 4.5. Hemoglobin 10.5. Platelet count 131. Sodium 135. Potassium 4.1. BUN 21. Creatinine 5.63. Troponin 0.037. Current home cardiac medications include Cardura 4 mg at night, lisinopril 20 mg twice a day, hydralazine 50 mg twice a day, Demadex 20 mg twice a day, and Norvasc 10 mg daily Most recent echocardiogram in September 2020 at [facility] revealed ejection fraction 55-60% with moderate tricuspid regurgitation REVIEW OF SYSTEMS: At the time of my exam: CONSTITUTIONAL: Denies fever or chills. HEENT: Denies blurred vision, vision changes, or eye pain. Denies hemoptysis CARDIOVASCULAR: Denies chest pain. Denies orthopnea. Denies PND. Denies palpitations RESPIRATORY: Denies shortness of breath. GASTROINTESTINAL: Denies abdominal pain. Denies nausea or vomiting. HEMATOLOGIC: Denies bleeding disorders. GENITOURINARY: Denies any blood in urine. SKIN: Denies pruitis. Denies rash. PHYSICAL EXAM: VITAL SIGNS: Reviewed. GENERAL: Well-developed in no acute distress. HEENT: Head is normocephalic. Pupils are equal, round. Sclerae anicteric. Mucous membranes of the mouth are moist. Neck supple. No JVD or thyromegaly LUNGS: Respirations even and unlabored. Lungs diminished bilaterally. HEART: Regular rate and rhythm. S1 and S2 heard. Dialysis catheter noted to left chest. ABDOMEN: Soft. Nondistended. Nontender. EXTREMITIES: Normal range of motion. No clubbing or cyanosis. Peripheral pulses intact. No lower extremity edema NEUROLOGIC: Awake and alert. Oriented x 3. ASSESSMENT: Nausea and vomiting Generalized weakness Dizziness Second degree heart block End stage renal disease on HD Abnormal troponin, secondary to CKD, no evidence of ACS Hypertension PLAN: No need to repeat echocardiogram as this was performed in September 2020 May hold off on antihypertensive medications at this time. Continue to monitor blood pressure. Patients symptoms do not appear to be related to his heart block Continue to avoid AV kimani blocking agents Patient will require PPM after his left chest dialysis catheter is removed Further recommendations pending patient course Patient to follow up outpatient with Dr. Guevara Nurse practitioner note has been reviewed by physician. Signing provider agrees with the documented findings, assessment, and plan of care. Past Medical History Past Medical History: Cancer, Diabetes Mellitus, Hypertension, Renal Disease History of Any Multi-Drug Resistant Organisms: None Reported Past Surgical History: No Surgical Hx Reported Additional Past Surgical History / Comment(s): colon cancer Past Anesthesia/Blood Transfusion Reactions: Previous Problems w/ Anesthesia, Motion Sickness, Postoperative Nausea & Vomiting (PONV) Additional Past Anesthesia/Blood Transfusion Reaction / Comment(s): Pt states he gets "violently sick" with anesthesia. Past Psychological History: No Psychological Hx Reported Smoking Status: Former smoker Past Alcohol Use History: None Reported Past Drug Use History: None Reported - Past Family History Mother Family Medical History: Diabetes Mellitus Father Family Medical History: Coronary Artery Disease (CAD) Medications and Allergies Home Medications Medication Instructions Recorded Confirmed Type Aspirin 81 mg PO DAILY 05/19/14 11/09/20 History Insulin NPL/Insulin Lispro See Protocol SQ BID 05/19/14 11/09/20 History [humaLOG MIX 75-25 VIAL] Doxazosin Mesylate [Cardura] 8 mg PO DAILY 05/14/17 11/09/20 History calcitrioL [Calcitriol] 0.5 mcg PO MO 08/12/20 11/09/20 History lisinopriL 20 mg PO BID 08/12/20 11/09/20 History Doxazosin Mesylate [Cardura] 4 mg PO HS 09/24/20 11/09/20 History Fish Oil/Dha/Epa [Fish Oil 1,200 2 cap PO DAILY 09/24/20 11/09/20 History mg Fish Oil] amLODIPine [Norvasc] 10 mg PO DAILY 09/24/20 11/09/20 History Cholecalciferol [Vitamin D3 (25 50 mcg PO DAILY 11/09/20 11/09/20 History Mcg = 1000 Iu)] Torsemide [Demadex] 20 mg PO BID 11/09/20 11/09/20 History hydrALAZINE HCL 50 mg PO BID 11/09/20 11/09/20 History Allergies Allergy/AdvReac Type Severity Reaction Status Date / Time No Known Allergies Allergy Verified 11/09/20 17:05 Physical Exam Vitals: Vital Signs Temp Pulse Pulse Resp BP BP Pulse Ox 11/10/20 04:00 98.0 F 50 L 16 126/60 93 L 11/10/20 02:00 16 11/10/20 00:00 97.9 F 53 L 16 120/61 98 11/09/20 23:58 98 11/09/20 22:15 98.5 F 47 L 16 114/56 95 11/09/20 22:05 48 L 16 92 L 11/09/20 19:00 46 L 18 106/52 95 11/09/20 18:30 48 L 17 130/51 93 L 11/09/20 18:00 52 L 20 130/64 75 L 11/09/20 17:30 50 L 18 129/52 94 L 11/09/20 17:00 48 L 12 127/55 97 11/09/20 16:31 43 L 18 127/55 98 11/09/20 13:59 97.8 F 69 16 91/42 97 Intake and Output 11/09/20 11/10/20 11/10/20 22:59 06:59 14:59 Intake Total 240 Output Total 0 Balance 0 240 Intake: Oral 240 Output: Urine 0 Other: Voiding Method Urinal Weight 127.459 kg 118.5 kg Results 11/09/20 14:35 11/10/20 07:31 Cardiac Enzymes 11/09/20 11/09/20 Range/Units 14:35 14:35 AST 27 (17-59) U/L Troponin I 0.037 H* (0.000-0.034) ng/mL Coagulation 11/09/20 Range/Units 14:35 PT 10.5 (9.0-12.0) sec APTT 23.8 (22.0-30.0) sec CBC 11/09/20 Range/Units 14:35 WBC 4.5 (3.8-10.6) k/uL RBC 3.30 L (4.30-5.90) m/uL Hgb 10.5 L (13.0-17.5) gm/dL Hct 29.4 L (39.0-53.0) % Plt Count 131 L (150-450) k/uL Comprehensive Metabolic Panel 11/09/20 11/10/20 Range/Units 14:35 07:31 Sodium 136 L 135 L (137-145) mmol/L Potassium 2.9 L 4.1 (3.5-5.1) mmol/L Chloride 95 L 97 L (98-107) mmol/L Carbon Dioxide 33 H 28 (22-30) mmol/L BUN 16 21 H (9-20) mg/dL Creatinine 4.15 H 5.63 H (0.66-1.25) mg/dL Glucose 159 H 126 H (74-99) mg/dL Calcium 8.8 8.9 (8.4-10.2) mg/dL AST 27 (17-59) U/L ALT 14 (4-49) U/L Alkaline Phosphatase 74 (38-126) U/L Total Protein 7.1 (6.3-8.2) g/dL Albumin 4.1 (3.5-5.0) g/dL Current Medications Generic Name Dose Route Start Last Admin Trade Name Freq PRN Reason Stop Dose Admin Acetaminophen 650 mg 11/09/20 17:19 Acetaminophen Tab 325 Mg Tab PO Q6HR PRN Mild Pain or Fever > 100.5 Aspirin 81 mg 11/10/20 09:00 11/10/20 09:29 Aspirin 81 Mg PO 81 mg DAILY CARSON Administration Calcitriol 0.5 mcg 11/14/20 09:00 Calcitriol 0.25 Mcg Cap PO MO CARSON Cholecalciferol 50 mcg 11/10/20 09:00 11/10/20 09:29 Cholecalciferol 25 Mcg (1000 Iu) Tablet PO 50 mcg DAILY CARSON Administration Heparin Sodium (Porcine) 5,000 unit 11/09/20 21:00 11/10/20 09:29 Heparin Sodium,Porcine/Pf 5,000 Unit/0.5 Ml Syringe SQ 5,000 unit Q12HR CARSON Administration Insulin Aspart 0 unit 11/09/20 21:00 11/10/20 06:58 Insulin Aspart (Novolog) 100 Unit/Ml Vial SQ Not Given ACHS [facility] Protocol Naloxone HCl 0.2 mg 11/09/20 17: Naloxone 0.4 Mg/Ml 1 Ml Vial IV Q2M PRN Opioid Reversal Ondansetron HCl 4 mg 11/09/20 17: Ondansetron 4 Mg/2 Ml Vial IVP Q8HR PRN Nausea And Vomiting Pantoprazole Sodium 40 mg 11/09/20 21:00 11/10/20 09:29 Pantoprazole 40 Mg/10 Ml Vial IVP 40 mg BID CARSON Administration Intake and Output 11/09/20 11/10/20 11/10/20 22:59 06:59 14:59 Intake Total 240 Output Total 0 Balance 0 240 Intake: Oral 240 Output: Urine 0 Other: Voiding Method Urinal Weight 127.459 kg 118.5 kg 11/09/20 14:35 11/10/20 07:31
[2020-11-10 11:38] LABS: Glucose,Whole Blood 152 mg/dL (75-99)
--- NOTE | 2020-11-10 12:45 | P.DS ---
Providers Date of admission: 11/09/20 20:53 Attending physician: Lobo Chandler Consults: 11/09/20 17:20 Consult Physician Urgent Consulting Provider: [facility] Consult Reason/Comments: Bradycardia, elevated trop, renal failure Do you want consulting provider notified?: Yes Consult Physician Urgent Consulting Provider: Ilan Vizcarra Consult Reason/Comments: Renal failure, hypokalemia Do you want consulting provider notified?: Yes Primary care physician: Harsh Garcia Hospital Course: 65-year-old male was sent in the hospital by meat cutting teacher as patient was comparing of generalized weakness has been going on for 2 weeks since he was started on hemodialysis. Patient was a having vomiting as well multiple episodes for last few days. The symptoms are expected to after initiation of dialysis but expect expected to improve. Patient ER found to have several flat abnormalities including the potassium from nausea vomiting and also bradycardia and hypotension because of which patient is being admitted. Patient was told he needs a pacemaker by cardiology patient has a second-degree type I AV block at this time patient symptoms are probably not from this. 11/10/2020 Patient nausea significantly resolved. Patient was evaluated by cardiology and nephrology. Patient the has a permacath on the right side which interferes with placement of pacemaker because of which pacemaker is being postponed until the fistula matures so that the permacath can come out and patient can have a pacemaker. Nephrology basis symptom analogies secondary to excessive ultrafiltration and patient largest about 20 pounds of weight. Patient was receiving aggressive ultrafiltration because of significant edema which will be cut down now patient's symptoms improved and will be discharged today to follow with PCP nephrology as an outpatient. Patient blood pressure is fairly doing well and didn't have enough time to titrate his antihypertensive medications patient's ALAN inhibitor will be cut down to 5 mg this can you hydralazine patient will be continued on amlodipine. PHYSICAL EXAMINATION: GENERAL: The patient is alert and oriented x3, not in any acute distress. Well developed, well nourished. HEENT: Pupils are round and equally reacting to light. EOMI. No scleral icterus. No conjunctival pallor. Normocephalic, atraumatic. No pharyngeal erythema. No thyromegaly. CARDIOVASCULAR: S1 and S2 present. No murmurs, rubs, or gallops. PULMONARY: Chest is clear to auscultation, no wheezing or crackles. ABDOMEN: Soft, nontender, nondistended, normoactive bowel sounds. No palpable o rganomegaly. MUSCULOSKELETAL: No joint swelling or deformity. EXTREMITIES: No cyanosis, clubbing, or pedal edema. NEUROLOGICAL: Gross neurological examination did not reveal any focal deficits. SKIN: No rashes. Assessment and Plan Plan: - nausea vomiting: Is probably related to excess ultrafiltration cannot rule out peptic ulcer disease patient will be discharged on 14 days of Prilosec. Patient is also hypotensive. -Generalized weakness: Secondary to end-stage renal disease -Cardiac arrhythmia, bradycardia: Patient presently has a second-degree type II AV block , pacemaker placement as mentioned above -Hypertension: Patient is presently hypotensive hold off blood pressure medications and monitor blood pressure -Type 2 diabetes mellitus: Patient blood sugars has been running low because of which patient is refusing sliding scale at home which will be continued -End-stage renal disease fall probably a diabetic nephropathy Patient Condition at Discharge: Stable Plan - Discharge Summary Discharge Rx Participant: No New Discharge Prescriptions: New Lisinopril [Prinivil] 5 mg PO DAILY #30 tab INSULIN LISPRO (humaLOG) [humaLOG] 1 injection SQ DIRECTED #10 ml Omeprazole [PriLOSEC] 40 mg PO -[facility] #14 capsule. Continue Aspirin 81 mg PO DAILY Doxazosin Mesylate [Cardura] 8 mg PO DAILY calcitrioL [Calcitriol] 0.5 mcg PO MO Cholecalciferol [Vitamin D3 (25 Mcg = 1000 Iu)] 50 mcg PO DAILY Fish Oil/Dha/Epa [Fish Oil 1,200 mg Fish Oil] 2 cap PO DAILY Doxazosin Mesylate [Cardura] 4 mg PO HS amLODIPine [Norvasc] 10 mg PO DAILY Torsemide [Demadex] 20 mg PO BID Discontinued Insulin NPL/Insulin Lispro [humaLOG MIX 75-25 VIAL] See Protocol SQ BID lisinopriL 20 mg PO BID hydrALAZINE HCL 50 mg PO BID Discharge Medication List Aspirin 81 mg PO DAILY 05/19/14 [History] Doxazosin Mesylate [Cardura] 8 mg PO DAILY 05/14/17 [History] calcitrioL [Calcitriol] 0.5 mcg PO MO 08/12/20 [History] Doxazosin Mesylate [Cardura] 4 mg PO HS 09/24/20 [History] Fish Oil/Dha/Epa [Fish Oil 1,200 mg Fish Oil] 2 cap PO DAILY 09/24/20 [History] amLODIPine [Norvasc] 10 mg PO DAILY 09/24/20 [History] Cholecalciferol [Vitamin D3 (25 Mcg = 1000 Iu)] 50 mcg PO DAILY 11/09/20 [History] Torsemide [Demadex] 20 mg PO BID 11/09/20 [History] INSULIN LISPRO (humaLOG) [humaLOG] 1 injection SQ DIRECTED #10 ml 11/10/20 [Rx] Lisinopril [Prinivil] 5 mg PO DAILY #30 tab 11/10/20 [Rx] Omeprazole [PriLOSEC] 40 mg PO ANITRA-ANA MARÍAElisa #14 capsule. 11/10/20 [Rx] Follow up Appointment(s)/Referral(s): Harsh Garcia MD [Primary Care Provider] - 3 Days Discharge Disposition: HOME SELF-CARE
--- NOTE | 2020-11-10 14:41 | CONS ---
CONSULTATION REASON FOR CONSULT: Renal failure. HISTORY OF PRESENT ILLNESS: Patient is a 65-year-old with end-stage renal disease started on dialysis about 3 weeks ago, admitted to the hospital with complaints of increased weakness, lethargy post dialysis yesterday. The patient had a lot of edema and volume overload and over the past 6 treatments he has had significant ultrafiltration and decrease in his weights. When patient presented, he was bradycardic with heart rate 47-50 per minute. He is not on any beta blockers at home prior to admission. Currently patient is being seen by Cardiology. His blood pressure was about 114 mmHg systolic with a pressure of 91/42 when he first came in. PAST MEDICAL HISTORY: End-stage renal disease recently started on dialysis, CKD mineral bone disorder, anemia of chronic disease; history of colon cancer, details not known. SOCIAL HISTORY: Patient is a former smoker. No history of drug abuse or alcohol abuse. MEDICATIONS: Medications prior to admission included aspirin, Cardura, calcitriol, lisinopril, Norvasc Demadex, hydralazine. ALLERGIES: None. REVIEW OF SYSTEMS: As per HPI. Other systems negative. PHYSICAL EXAMINATION: Patient is comfortable, awake, not in any acute distress. Blood pressure is 126/60, heart rate 50 per minute. He is afebrile. EXAMINATION OF THE HEART: S1, S2. EXAMINATION OF THE LUNGS: Bilateral breath sounds are heard. Abdomen is soft, nontender. Examination of lower extremities shows chronic skin changes, much decreased edema, and wrinkling of the skin suggesting recent decrease in edema. YARN WINDER exam grossly intact. LABS: Labs show sodium 135, potassium 4.1, chloride 97, CO2 is 28, BUN 21, creatinine 5.63, hemoglobin 10.5 g/dL. ASSESSMENT: 1. End-stage renal disease recently started on dialysis with significant ultrafiltration and improvement in volume status over the past 6 treatments. 2. Weakness, lightheadedness associated with hypotension, bradycardia, and recent ultrafiltration with significant decrease in weight over the past 6 treatments as outpatient. We will need to adjust his dry weight and decreased ultrafiltration as outpatient as currently patient does not have significant edema and he is not significantly volume overloaded. He may be at his dry weight currently. 3. Hypokalemia. The labs were done post dialysis and today the potassium is within normal range. 4. Bradycardia with Cardiology planning a pacemaker once the left-sided IJ PermCath is removed. The patient does have an AV fistula in his right upper arm which is not ready for at least another 5-6 weeks. 5. Chronic kidney disease mineral bone disorder. PLAN: Hemodialysis in a.m. with no significant ultrafiltration. If there are no further plans, patient could actually be discharged and follow up as outpatient for dialysis tomorrow. MMODL / ELIUN: [id number] /
[2020-11-10 16:29] LABS: Glucose,Whole Blood 140 mg/dL (75-99)
[2020-11-10 17:22] VITALS: BP 116/56; PULSE 60; TEMP 98.6
== END 2020-11-10 17:17 | disposition home or self-care (01) ==
LOC: EC 13:54 → INTOOBSV 20:53 → 3SCARD 20:53 → UNDODISIN 11-10 17:17
PROVIDERS: ADMIT Hospitalist; ATTEND Hospitalist
DX: I13.11 Hypertensive heart and chronic kidney disease without heart failure, with stage 5 chronic kidney disease, or end stage renal disease (principal); N18.6 End stage renal disease; D63.1 Anemia in chronic kidney disease; E11.22 Type 2 diabetes mellitus with diabetic chronic kidney disease; E87.6 Hypokalemia; I44.1 Atrioventricular block, second degree; R00.1 Bradycardia, unspecified; I95.9 Hypotension, unspecified; I36.1 Nonrheumatic tricuspid (valve) insufficiency; M89.9 Disorder of bone, unspecified; Z20.822 Contact with and (suspected) exposure to COVID-19; Z99.2 Dependence on renal dialysis; Z79.82 Long term (current) use of aspirin; Z79.4 Long term (current) use of insulin; Z79.899 Other long term (current) drug therapy; Z85.038 Personal history of other malignant neoplasm of large intestine; Z87.891 Personal history of nicotine dependence; Z83.3 Family history of diabetes mellitus; Z82.49 Family history of ischemic heart disease and other diseases of the circulatory system
CPT/HCPCS: 96372 ×2; 96375; 96374; 99285; 94660; 94760; 93005; 80053; 80048; 83605; 83735; 84100; 84484; 85025; 85610; 85730; 87635; 71046; G0378 ×2; J2405; C9113; J1644 ×2

== ENCOUNTER → 2021-10-19 | Outpatient (CLI) | payer MEDICARE ==
--- NOTE | 2021-10-19 12:43 | XR ---
EXAMINATION TYPE: XR chest 2V DATE OF EXAM: 10/19/2021 COMPARISON: Chest x-ray 11/09/2020 HISTORY: Z01.818 TECHNIQUE: Frontal and lateral views of the chest are obtained. FINDINGS: There is no focal air space opacity, pleural effusion, or pneumothorax seen. Minimal stran d-like densities at the lingula are stable and likely represents scarring rather than atelectasis. T he cardiac silhouette size is within normal limits. There is a generator in the left pectoral region, leads are present in the right atrium and ventricle. The osseous structures are intact. IMPRESSION: No acute cardiopulmonary process.
== END | disposition home or self-care (01) ==
LOC: RADXRMAIN 10:10
PROVIDERS: ATTEND Internal Medicine
DX: Z01.818 Encounter for other preprocedural examination (principal); I45.10 Unspecified right bundle-branch block; R94.31 Abnormal electrocardiogram [ECG] [EKG]
CPT/HCPCS: 71046; 93005

== ENCOUNTER → 2021-12-28 | Outpatient (CLI) | payer MEDICARE ==
--- NOTE | 2021-12-28 09:47 | CT ---
EXAMINATION TYPE: CT abdomen pelvis wo con DATE OF EXAM: 12/28/2021 COMPARISON: 04/15/2014 INDICATION: End stage renal disease. DLP: 644.9 mGycm, Automated exposure control for dose reduction was used. CONTRAST: 0 mL of Isovue 300. Study performed without Oral Contrast TECHNIQUE: Axial images were obtained from above the diaphragm to the pubic rami in the axial plane a t 5 mm thick sections. Reconstructed images are reviewed on the computer in the coronal plane. FINDINGS: Limited CT sections are obtained the lung bases. The lung bases are clear. CT ABDOMEN: Liver: Normal Spleen: Splenomegaly is present at 14.8 cm. Pancreas: A 1.2 cm calcifications in the posterior body of the pancreas. Adrenal glands: The adrenal glands are normal. Gallbladder: Surgically absent Kidneys: Right kidney is surgically absent. There is a large mass on the superior posterior pole left kidney measuring 7.5 cm no hydronephrosis is evident. No suspicious renal stones are evident. Aorta: Vascular calcification is within the aorta. Inferior vena cava: Normal. CT PELVIS: Loops of bowel within the abdomen and pelvis are normal. Study is performed without oral contrast limiting bowel evaluation. Appendix: Normal as visualized. Urinary bladder: Decompressed. Urinary bladder wall thickening appears to be present. Genitourinary structures: Prostate is prominent. Osseous structures: No suspicious lytic or sclerotic lesions. Lymphadenopathy: Small bilateral inguinal nodes are present. There may be enlarged lymphadenopathy th rough the left iliac chain. No periaortic or retrocaval adenopathy is evident. No obvious thrombus th is noncontrast study is within the left renal vein. No retrocrural adenopathy. IMPRESSIONS: 1. 7.5 cm mass superior posterior left kidney suspicious for neoplasm. 2. Enlarged adenopathy within the left iliac chain. Consider additional workup with PET CT.
== END | disposition home or self-care (01) ==
LOC: RADCTMAIN 07:47
PROVIDERS: ATTEND Internal Medicine
DX: N18.6 End stage renal disease (principal); R59.0 Localized enlarged lymph nodes
CPT/HCPCS: 74176

== ENCOUNTER → 2022-01-20 | Outpatient (CLI) | payer MEDICARE ==
--- NOTE | 2022-01-22 06:19 | PE ---
EXAMINATION TYPE: PET CT fusion skull to thigh DATE OF EXAM: 01/20/2022 COMPARISON: CT abdomen and pelvis December 28, 2021 HISTORY: Right-sided kidney cancer diagnosed [address] TECHNIQUE: Following the intravenous administration of 11.72 mCi of F-18 FDG, whole body images are performed from the skull base to the midthigh. Images are reviewed on the computer in the coronal, a xial, and sagittal planes. Reconstructed rotating images are created on independent workstation and reviewed on the computer. A localization and attenuation correction CT is performed in conjunction with the PET scan. Blood glucose level equals 99. SCAN: Initial Scan FINDINGS: SKULL BASE AND NECK: No areas of abnormal hypermetabolic uptake. CHEST, MEDIASTINUM, AND HILAR REGION: Mild hypermetabolic uptake in level of 2.1 cm left thyroid nodu le axial image 65, max SUV is 2.19. No additional areas of abnormal hypermetabolic uptake. ABDOMEN AND PELVIS: There is exophytic solid left renal mass measuring 7.7 x 6.5 cm axial image 160, max SUV is 4.00 on axial image [id number]. Right kidney surgically absent. Normal excretion. No additiona l areas of abnormal hypermetabolic uptake. OSSEOUS STRUCTURES: No areas of abnormal hypermetabolic uptake. OTHER CT: Left-sided multi lead pacemaker. Bilateral gynecomastia. Cardiomegaly. Splenomegaly is seen. Cholecystectomy clips noted. Enlarged prostate consistent with BPH. Moderate to large sized bilateral inguinal hernias. IMPRESSION: 1. Confirmation of suspicious hypermetabolic solid left renal mass worrisome for neoplasm. No abnorma l adenopathy or metastatic disease seen. 2. Mildly hypermetabolic greater than 1 cm left thyroid nodule, neoplasm cannot be excluded. If not k nown finding dedicated thyroid ultrasound follow-up is advised to further evaluate.
== END | disposition home or self-care (01) ==
LOC: RADPETMAIN 09:42
PROVIDERS: ATTEND Internal Medicine
DX: C64.1 Malignant neoplasm of right kidney, except renal pelvis (principal)
CPT/HCPCS: 78815; A9552

== ENCOUNTER → 2022-01-31 | Outpatient (CLI) | payer MEDICARE ==
--- NOTE | 2022-02-01 08:19 | US ---
EXAMINATION TYPE: US thyroid st tissue head/neck DATE OF EXAM: 01/31/2022 COMPARISON: PET CT 01/20/2022 CLINICAL HISTORY: 67-year-old male E04.1 THYROID NODULE. Nodule seen on Pet CT GLAND SIZE: Right Lobe: 4.5 x 1.3 x 2.2 cm Overall Parenchyma: heterogenous Left Lobe: 4.2 x 2.2 x 3.0 cm Overall Parenchyma: heterogeneous Isthmus Thickness: 0.3 cm NODULES RIGHT: # of nodules measured on right: 1 1. 0.8 X 0.7 x 0.5 cm, upper , solid or almost completely solid, hypoechoic TR 4 nodule, which is w ider than tall, with smooth margins, with echogenic foci. Prior size: WATER WELL DRILLER LEFT: # of nodules measured on left: 1 1. 3.4 X 1.9 x 2.3 cm, mid , solid or almost completely solid, heterogeneous isoechoic TR 3 nodule, which is wider than tall, with smooth margins, without echogenic foci. Prior size: WATER WELL DRILLER ISTHMUS: # of nodules measured in the isthmus: 0 Bilateral neck scanned, no evidence of lymphadenopathy. IMPRESSION: 1. A mildly metabolic 3.4 cm TR3 solid nodule corresponds to the PET/CT findings. This meets criteria for FNA. 2. Additional 8 mm TR4 nodule on the right can be reassessed at follow-up. FNA if it reaches 1.5 cm.
== END | disposition home or self-care (01) ==
LOC: RADUSWWP 16:05
PROVIDERS: ATTEND Internal Medicine
DX: E04.2 Nontoxic multinodular goiter (principal)
CPT/HCPCS: 76536

== ENCOUNTER → 2022-02-20 | Day surgery (SDC) | payer MEDICARE, OTHER ==
[~2022-02-20] MED LIST changes: -LIDOCAINE 1% (10MG/ML) FOR IV START INTRADERMA PRN; +LIDOCAINE 2% INJ 20 MG/ML (2 ML VIAL) ONE; +PROPOFOL 10 MG/ML 20 ML VIAL IV ONE; +SODIUM CHLORIDE 0.9% 500 ML 500 ML IV ONE
[2022-02-20 07:04] VITALS: TEMP 97
[2022-02-20 07:16] LABS: Glucose,Whole Blood 88 mg/dL (70-110)
--- NOTE | 2022-02-20 08:38 | P.PCN ---
Date of Procedure: 02/20/22 Procedure(s) Performed: BRIEF HISTORY: Patient is a 67-year-old pleasant white male scheduled for an elective colonoscopy as a part of value should prior history of colon polyps. Last colonoscopy was 3 years ago and was noted to have multiple colon polyps. PROCEDURE PERFORMED: Colonoscopy. PREOPERATIVE DIAGNOSIS: History of colon polyps. IV sedation per Anesthesia. PROCEDURE: After informed consent was obtained, the patient, was brought into the endoscopy unit. IV sedation was administered by Anesthesia under continuous monitoring. Digital rectal examination was normal. Initially the Olympus CF-160 flexible video colonoscope was then inserted in the rectum, gradually advanced into the cecum without any difficulty. Careful examination was performed as the scope was gradually being withdrawn. Ileocecal valve and the appendiceal orifice were visualized and appeared normal. Prep was excellent. Mucosa of the cecum, ascending colon, transverse colon, descending colon, sigmoid colon appeared normal. In the sigmoid was a 5 mm polyp removed by snare polypectomy. The rectum appeared normal. Retroflexion was performed in the rectum and no lesions were seen. The patient tolerated the procedure well. IMPRESSION: 5 limited sigmoid polyp status post snare polypectomy Rest of the colon appeared normal RECOMMENDATIONS: Findings of this examination were discussed with the patient as well as his family. He was advised to follow with the biopsy results and have a repeat colonoscopy in 5 years..
[2022-02-20 08:41] VITALS: RESP 16
[2022-02-20 09:07] VITALS: PULSE 58
[2022-02-20 09:08] VITALS: BP 102/59
== END ==
LOC: ORWHC2ENDO 06:35
PROVIDERS: ATTEND Internal Medicine Gastroenterology
DX: Z12.11 Encounter for screening for malignant neoplasm of colon (principal); K63.5 Polyp of colon; I10 Essential (primary) hypertension; E11.9 Type 2 diabetes mellitus without complications; Z85.038 Personal history of other malignant neoplasm of large intestine; Z85.528 Personal history of other malignant neoplasm of kidney; Z99.2 Dependence on renal dialysis; Z79.4 Long term (current) use of insulin; Z79.899 Other long term (current) drug therapy
CPT/HCPCS: 45385; 88305; 84132; J2704; J2001

== ENCOUNTER 2022-03-22 08:10 | Day surgery (SDC) | payer MEDICARE, OTHER ==
[~2022-03-22 08:10] MED LIST changes: +DEXAMETHASONE SOD PHOSPHATE 4 MG/ML 1 ML VIAL IV ONE; +HEPARIN SODIUM,PORCINE/PF 5,000 UNIT/0.5 ML SYRINGE SQ PRN; +HYDROmorphone 0.5 MG/0.5 ML SYRINGE IVP PRN; -LACTATED RINGERS 1,000 ML IV SCH; +LIDOCAINE 1% (10MG/ML) FOR IV START INTRADERMA PRN; -LIDOCAINE 2% INJ 20 MG/ML (2 ML VIAL) ONE; +ONDANSETRON 4 MG/2 ML VIAL IVP ONE; -PROPOFOL 10 MG/ML 20 ML VIAL IV ONE; -SODIUM CHLORIDE 0.9% 500 ML 500 ML IV ONE
[2022-03-22] MEDS: LACTATED RINGERS 1,000 ML IV SCH (09:13)
[2022-03-22 09:14] LABS: Glucose,Whole Blood 78 mg/dL (70-110)
--- NOTE | 2022-03-22 10:32 | P.HPIHPCON ---
History of Present Illness H&P Date: 03/22/22 Chief Complaint: Left renal mass This is 67-year-old male with history of a 7.5 cm left-sided left-sided renal mass. He does have history of right-sided renal cell carcinoma status post neph[place] [address] Rincon. Patient is currently on hemodialysis. Discussed with him given the finding on CT the option of left radical nephrectomy. Discussed with him the risk which includes but not limited to bleeding, infection, injury to nearby organs which include but not limited to the spleen, pancreas, bowel. Discussed also risk from anesthesia which include but not limited to heart attack, stroke, blood clots and even loss of life. He understood all the risk and agree to proceed with a robotic left-sided nephrectomy Consent for Procedure: I have explained the operation/procedure to the patient, including the risks, benefits, side effects, alternative therapies (including not receiving the proposed treatment or service), the likelihood of the patient achieving his/her goals, and potential recuperation problems for the procedure/sedation/analgesia, as well as any blood products, if indicated. I also explained to the patient the risks, benefits and side effects of the alternatives, as well as the risks related to not receiving the proposed procedure, care, treatment, or services. 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 hx RIGHT KIDNEY CANCER - removed.HEMODIAYSIS MWF started 1 yr ago ( worked up for kidney transplant not eligible per pt). arthritis generalized, wears a cpap. mass on both sides of thryroid. ( Karmanos clean biopsy) Pt states he thinks he had a slow heart rate before the pacemaker History of Any Multi-Drug Resistant Organisms: None Reported Date of last positivie culture/infection: UNKNOWN DATE MDRO Source:: BILATERAL LOWER EXTREMITIES. Past Surgical History: Hernia Repair, Joint Replacement, Pacemaker Additional Past Surgical History / Comment(s): colon cancer removed during colonoscopy . rt kidney removed- 2007. left dialysis catheter removed, rt arm port for dialysis. left knee replacement (hospitalized post op for infecton) umbilical hernia repair. bilateral cataract removal Past Anesthesia/Blood Transfusion Reactions: Previous Problems w/ Anesthesia, Motion Sickness, Postoperative Nausea & Vomiting (PONV) Additional Past Anesthesia/Blood Transfusion Reaction / Comment(s): Pt states he gets "violently sick" with anesthesia. last time with colonoscopy was good Type of Cardiac Device: Permanent Pacemaker Device Placement Date:: 09/12 Smoking Status: Former smoker - Past Family History Mother Family Medical History: Diabetes Mellitus Additional Family Medical History / Comment(s): pacemaker. Father Family Medical History: Coronary Artery Disease (CAD) Medications and Allergies Home Medications Medication Instructions Recorded Confirmed Type Aspirin 81 mg PO DAILY 05/19/14 03/22/22 History Cholecalciferol [Vitamin D3 (25 50 mcg PO DAILY 11/09/20 03/22/22 History Mcg = 1000 Iu)] Insulin Lispro Protamin/Lispro 1 dose SQ BID 02/16/22 03/22/22 History [humaLOG Mix 75-25 Kwikpen] Simvastatin [Zocor] 20 mg PO HS 02/16/22 03/22/22 History allopurinoL [Zyloprim] 100 mg PO QAM 02/16/22 03/22/22 History Calcium Acetate 2 tab PO BID 03/20/22 03/22/22 History INSULIN LISPRO (humaLOG) [humaLOG] 1 injection SQ DIRECTED PRN 03/20/22 03/22/22 History Midodrine HCl 5 mg PO DIRECTED PRN 03/20/22 03/22/22 History Potassium Chloride ER [K-Dur 10] 10 meq PO HS 03/20/22 03/22/22 History Unk Centrum Vitamin 1 tab PO DAILY 03/20/22 03/22/22 History Unk Clara B12 1 tab PO DAILY 03/20/22 03/22/22 History Allergies Allergy/AdvReac Type Severity Reaction Status Date / Time No Known Allergies Allergy Verified 03/22/22 08:40 Surgical - Exam Vital Signs Temp Pulse Resp BP Pulse Ox 96.7 F L 60 18 147/66 100 03/22/22 08:47 03/22/22 08:47 03/22/22 08:47 03/22/22 08:47 03/22/22 08:47 - General no distress, no pain - Eyes normal ocular movement, no pale - Respiratory normal expansion, normal respiratory effort - Abdomen Abdomen: soft, non tender Assessment and Plan Assessment: OR for left sided radical nephrectomy
[2022-03-22 10:37] LABS: Albumin 3.7 g/dL (3.5-5.0); Calcium 8.5 mg/dL (8.4-10.2); Potassium 3.6 mmol/L (3.5-5.1); Total Bilirubin 0.8 mg/dL (0.2-1.3); Total Protein 7.5 g/dL (6.3-8.2)
[2022-03-22] MEDS ORDERED: MIDAZOLAM 2 MG/2 ML VIAL IVP ONE (10:50)
[2022-03-22] MEDS ORDERED: ROPIVACAINE 5 MG/ML 30 ML VIAL ONE (11:01)
[2022-03-22] MEDS ORDERED: NEOSTIGMINE 1 MG/ML 10 ML VIAL ONE (11:01)
[2022-03-22] MEDS ORDERED: fentaNYL (PF) 50 MCG/ML 2 ML AMP ONE (11:01)
[2022-03-22] MEDS ORDERED: ROCURONIUM 10 MG/ML (5 ML VIAL) IV ONE (11:01)
[2022-03-22] MEDS ORDERED: diphenhydrAMINE 50 MG/ML 1 ML VIAL ONE (11:01)
[2022-03-22] MEDS ORDERED: KETAMINE 10 MG/ML 20 ML VIAL ONE (11:01)
[2022-03-22] MEDS ORDERED: GLYCOPYRROLATE 0.2 MG/ML 2 ML VIAL ONE (11:01)
[2022-03-22] MEDS ORDERED: PROPOFOL 10 MG/ML 20 ML VIAL IV ONE (11:01)
[2022-03-22] MEDS ORDERED: LIDOCAINE 2% INJ 20 MG/ML (2 ML VIAL) ONE (11:01)
[2022-03-22] MEDS ORDERED: ONDANSETRON 4 MG/2 ML VIAL ONE (11:01)
--- NOTE | 2022-03-22 12:13 | P.ANPRN ---
Procedure Note - Anesthesia - Nerve Block Performed Bilateral Transversus Abdominis Single Time Out Performed: Yes ([id number]) Date of Procedure: 03/22/22 Procedure Start Time: 10:50 Procedure Stop Time: 10:54 Location of Patient: PreOp Indication: Acute Post-Operative Pain, Requested by Surgeon Specifically requested for management of pain by : Cuate Ho Sedation Type: Sedate with meaningful contact maintained Preparation: Sterile Prep Position: Supine Catheter: None Needle Types: Pajunk Needle Gauge: 21 Ultrasound used to visualize needle placement: Yes Ultrasound used to observe medication spread: Yes Injectate: 0.5% Ropivacaine (see comment for volume) (15cc+ 10cc nacl pf each side) Blood Aspirated: No Pain Paresthesia on Injection Noted: No Resistance on Injection: Normal Image Stored and Saved: Yes Events: Uneventful and Well Tolerated
[2022-03-22] MEDS ORDERED: BUPIVACAINE (PF) 0.5% 30 ML VIAL SQ ONE (12:54)
--- NOTE | 2022-03-22 13:45 | P.OP ---
Date of Procedure: 03/22/22 Preoperative Diagnosis: Left renal mass Postoperative Diagnosis: Same Procedure(s) Performed: Robotic left sided radical nephrectomy Implants: none Anesthesia: TARAH Surgeon: Cuate Ho Enterprise Analyst #1: Uyen Go Estimated Blood Loss (ml): 50 Pathology: other (Left kidney) Condition: stable Disposition: PACU Indications for Procedure: This is 67-year-old male with history of a 7.5 cm left-sided left-sided renal mass. He does have history of right-sided renal cell carcinoma status post neph[place] [address] Rincon. Patient is currently on hemodialysis. Discussed with him given the finding on CT the option of left radical nephrectomy. Discussed with him the risk which includes but not limited to bleeding, infection, injury to nearby organs which include but not limited to the spleen, pancreas, bowel. Discussed also risk from anesthesia which include but not limited to heart attack, stroke, blood clots and even loss of life. He understood all the risk and agree to proceed with a robotic left-sided nephrectom Description of Procedure: The patient was taken to the operating room . General anesthesia was induced..He was prepped and draped in sterile fashion, she was placed in modified flank position . All pressure points were padded. The abdominal insufflation was achieved with the Veress needle. A 8 mm camera port was placed. Robotic trocars and events assistant ports were placed under direct vision. The robot was docked into place. The colon was mobilized medially by incising along the white line of Toldt. Next the spleen and the pancrease were mobilized. Once the bowel, spleen and pancreas were mobilized. At this time the gonadal vessel was visualized. . Next after the psoas plane was developed anteriorly and the ureter was identified.The ureter and gonadal vessel was retracted anteriorly off the psoas muscle. Next dissection was carried down to the hilum, both of the renal artery were dissected in preparation for the vascular stapler. Next using the vascular stapler renal artery and vein were ligated. Next the upper pole attachments was dissected using the vessel sealer. Next the lateral wall attachments were released, the ureter and the gonadal vein were transected using also the vascular stapler. This point visualization of the nephrectomy bed was performed showed no evidence of bleeding. Next the robot was undocked . Enterprise Analyst xiao chandra was extended. The specimen was removed. Fascia was closed using #1 PDS in running fashion Skin was closed with subcuticular sutures and dermabond. The patient was awoken from general anesthesia in stable condition. Please refer to the final pathology report for final diagnosis
[2022-03-22 14:22] LABS: Glucose,Whole Blood 116 mg/dL (70-110)
[2022-03-22] MEDS: ONDANSETRON 4 MG/2 ML VIAL IVP PRN ×2 (15:09→20:53)
[2022-03-22] MEDS: HYDROmorphone 1 MG/ML 1 ML SYRINGE IVP PRN ×2 (15:48→20:55)
[2022-03-22 16:36] LABS: Glucose,Whole Blood 141 mg/dL (70-110)
[2022-03-22] MEDS: HEPARIN SODIUM,PORCINE/PF 5,000 UNIT/0.5 ML SYRINGE SQ SCH (18:08)
[2022-03-22 20:35] LABS: Glucose,Whole Blood 155 mg/dL (70-110)
[2022-03-23] MEDS: HEPARIN SODIUM,PORCINE/PF 5,000 UNIT/0.5 ML SYRINGE SQ SCH (00:19)
[2022-03-23] MEDS: HYDROmorphone 1 MG/ML 1 ML SYRINGE IVP PRN (06:16)
[2022-03-23 07:02] LABS: Glucose,Whole Blood 111 mg/dL (70-110)
[2022-03-23] MEDS: ONDANSETRON 4 MG/2 ML VIAL IVP PRN (07:33)
[2022-03-23] MEDS: LACTATED RINGERS 1,000 ML IV SCH (07:38)
[2022-03-23 08:11] VITALS: RESP 18
--- NOTE | 2022-03-23 08:15 | P.DS ---
Providers Attending physician: Cuate Ho MD Primary care physician: Harsh Garcia [facility] Course: The patient underwent a left radical nephrectomy robotically yesterday, 03/22/2022. He did well overnight. His only complaint is narcotic-induced nausea. His abdomen is soft. Wound looks good. His vital signs are stable. He will have his hemodialysis this morning and if he does well he may be discharged home later today. He'll follow-up in the office next week with Patient Condition at Discharge: Good Plan - Discharge Summary Discharge Rx Participant: No New Discharge Prescriptions: No Action Aspirin 81 mg PO DAILY Cholecalciferol [Vitamin D3 (25 Mcg = 1000 Iu)] 50 mcg PO DAILY Simvastatin [Zocor] 20 mg PO HS Insulin Lispro Protamin/Lispro [humaLOG Mix 75-25 Kwikpen] 1 dose SQ BID Potassium Chloride ER [K-Dur 10] 10 meq PO HS Calcium Acetate 2 tab PO BID Unk Centrum Vitamin 1 tab PO DAILY Midodrine HCl 5 mg PO DIRECTED PRN PRN Reason: Blood Pressure - Low allopurinoL [Zyloprim] 100 mg PO QAM Unk Clara B12 1 tab PO DAILY INSULIN LISPRO (humaLOG) [humaLOG] 1 injection SQ DIRECTED PRN PRN Reason: Blood Sugar - High Discharge Medication List Aspirin 81 mg PO DAILY 05/19/14 [History] Cholecalciferol [Vitamin D3 (25 Mcg = 1000 Iu)] 50 mcg PO DAILY 11/09/20 [History] Insulin Lispro Protamin/Lispro [humaLOG Mix 75-25 Kwikpen] 1 dose SQ BID 02/16/22 [History] Simvastatin [Zocor] 20 mg PO HS 02/16/22 [History] allopurinoL [Zyloprim] 100 mg PO QAM 02/16/22 [History] Calcium Acetate 2 tab PO BID 03/20/22 [History] INSULIN LISPRO (humaLOG) [humaLOG] 1 injection SQ DIRECTED PRN 03/20/22 [History] Midodrine HCl 5 mg PO DIRECTED PRN 03/20/22 [History] Potassium Chloride ER [K-Dur 10] 10 meq PO HS 03/20/22 [History] Unk Centrum Vitamin 1 tab PO DAILY 03/20/22 [History] Unk Clara B12 1 tab PO DAILY 03/20/22 [History] Follow up Appointment(s)/Referral(s): Cuate Ho MD [STAFF PHYSICIAN] - 1 Week Discharge Disposition: HOME SELF-CARE
[2022-03-23] MEDS ORDERED: ACETAMINOPHEN TAB 500 MG TAB PO PRN (08:17)
[2022-03-23] MEDS ORDERED: MIDODRINE 5 MG TAB PO PRN (08:39)
[2022-03-23] MEDS ORDERED: NON FORMULARY DRUG (Insulin Lispro (Humalog) 100 UNIT/1 ML Ml) SQ PRN (08:39)
[2022-03-23] MEDS ORDERED: allopurinoL 100 MG TAB PO SCH (09:00)
[2022-03-23] MEDS ORDERED: ASPIRIN 81 MG PO SCH (09:00)
[2022-03-23] MEDS ORDERED: MULTIVITAMINS, THERA 1 EACH TAB PO SCH (09:00)
[2022-03-23] MEDS ORDERED: INSULIN LISPRO PROTAMIN SQ SCH (09:00)
[2022-03-23] MEDS ORDERED: CALCIUM ACETATE 667 MG TAB PO SCH (09:00)
[2022-03-23] MEDS ORDERED: LISPRO SQ SCH (09:00)
[2022-03-23] MEDS ORDERED: CHOLECALCIFEROL 25 MCG (1000 IU) TABLET PO SCH (09:00)
[2022-03-23] MEDS ORDERED: [UNRECOGNIZED DRUG - OTHER] SQ SCH (09:00)
[2022-03-23 10:02] LABS: Basophils # (A) 0.03 X 10*3/uL (0.00-0.10); Basophils % (A) 0.6 %; Eosinophils # (A) 0.01 X 10*3/uL (0.04-0.35); Eosinophils % (A) 0.2 %; HCT 34.1 % (39.6-50.0); HGB 10.9 g/dL (13.0-17.0); Immature Grans, Automated 0.4 %; Lymphocytes # (A) 0.73 X 10*3/uL (0.90-5.00); Lymphocytes % (A) 13.7 %; MCH 30.5 pg (27.0-32.0); MCV 95.5 fL (80.0-97.0); Mean Platelet Volume 10.7 fL (9.5-12.2); Monocytes # (A) 0.44 X 10*3/uL (0.20-1.00); Monocytes % (A) 8.3 %; NRBC Per 100 WBC 0 /100 WBCS (0.0-0.0); Neutrophils # (A) 4.08 X 10*3/uL (1.80-7.70); Neutrophils % (A) 76.8 %; Platelet Count 145 X 10*3/uL (140-440); RBC 3.57 X 10*6/uL (4.40-5.60); RDW 14.8 % (11.5-14.5); WBC 5.31 X 10*3/uL (4.50-10.00)
[2022-03-23 10:26] LABS: Anion Gap 15.3 mmol/L (10.00-18.00); BUN/Creat Ratio 8.49 Ratio (12.00-20.00); Calcium 8.7 mg/dL (8.7-10.3); Carbon Dioxide 24.7 mmol/L (20.0-27.5); Non-African American GFR(CKD) 10.3 (60.0-200.0); Potassium 4.2 mmol/L (3.5-5.5)
--- NOTE | 2022-03-23 10:53 | P.NPCON ---
History of Present Illness - Reason for Consult end stage renal disease - History of Present Illness Reason for consultation: End-stage renal disease History of present illness: Patient is a 67-year-old male seen in the left consultation for end-stage renal disease. He is maintained on hemodialysis on Saturday schedule. Patient was found to have left renal mass and underwent left-sided radical nephrectomy yesterday. He currently denies any complaints. Patient has history of right kidney cancer as well and underwent right nephrectomy in 2007. He is currently sitting up in bed. No vomiting or diarrhea. No chest pain or shortness of breath. Patient has history of pacemaker placement. Blood pressure is currently well controlled. No fever or chills. Vital signs are stable. General: Awake. No acute distress. HEENT: Head exam is unremarkable. LUNGS: Breath sounds decreased. HEART: Rate and Rhythm are regular. ABDOMEN: Soft, no distention. EXTREMITITES: No edema. Past Medical History Past Medical History: Cancer, Diabetes Mellitus, Renal Disease, Sleep Apnea/CPAP/BIPAP Additional Past Medical History / Comment(s): WORK UP FOR CANCER OF LEFT KIDNEY CANCER. hx RIGHT KIDNEY CANCER - removed.HEMODIAYSIS MWF started 1 yr ago ( worked up for kidney transplant not eligible per pt). arthritis generalized, w ears a cpap. mass on both sides of thryroid. ( Karjoséos clean biopsy) Pt states he thinks he had a slow heart rate before the pacemaker History of Any Multi-Drug Resistant Organisms: None Reported Date of last positivie culture/infection: UNKNOWN DATE MDRO Source:: BILATERAL LOWER EXTREMITIES. Past Surgical History: Hernia Repair, Joint Replacement, Pacemaker Additional Past Surgical History / Comment(s): colon cancer removed during colonoscopy . rt kidney removed- 2007. left dialysis catheter removed, rt arm port for dialysis. left knee replacement (hospitalized post op for infecton) umbilical hernia repair. bilateral cataract removal Past Anesthesia/Blood Transfusion Reactions: Previous Problems w/ Anesthesia, Motion Sickness, Postoperative Nausea & Vomiting (PONV) Additional Past Anesthesia/Blood Transfusion Reaction / Comment(s): Pt states he gets "violently sick" with anesthesia. last time with colonoscopy was good Type of Cardiac Device: Permanent Pacemaker Device Placement Date:: Carranza 09/12 Past Psychological History: No Psychological Hx Reported Smoking Status: Former smoker Past Alcohol Use History: None Reported Additional Past Alcohol Use History / Comment(s): 30 yrs ago 2 ppd. smoked for 25yrs. hasnt had alcohol in 20yrs Past Drug Use History: None Reported - Past Family History Mother Family Medical History: Diabetes Mellitus Additional Family Medical History / Comment(s): pacemaker. Father Family Medical History: Coronary Artery Disease (CAD) Medications and Allergies Home Medications Medication Instructions Recorded Confirmed Type Aspirin 81 mg PO DAILY 05/19/14 03/22/22 History Cholecalciferol [Vitamin D3 (25 50 mcg PO DAILY 11/09/20 03/22/22 History Mcg = 1000 Iu)] Insulin Lispro Protamin/Lispro 1 dose SQ BID 02/16/22 03/22/22 History [humaLOG Mix 75-25 Kwikpen] Simvastatin [Zocor] 20 mg PO HS 02/16/22 03/22/22 History allopurinoL [Zyloprim] 100 mg PO QAM 02/16/22 03/22/22 History Calcium Acetate 2 tab PO BID 03/20/22 03/22/22 History INSULIN LISPRO (humaLOG) [humaLOG] 1 injection SQ DIRECTED PRN 03/20/22 0 03/22/22 History Midodrine HCl 5 mg PO DIRECTED PRN 03/20/22 03/22/22 History Potassium Chloride ER [K-Dur 10] 10 meq PO HS 03/20/22 03/22/22 History Unk Centrum Vitamin 1 tab PO DAILY 03/20/22 03/22/22 History Unk Clara B12 1 tab PO DAILY 03/20/22 03/22/22 History Allergies Allergy/AdvReac Type Severity Reaction Status Date / Time No Known Allergies Allergy Verified 03/22/22 08:40 Physical Exam Vitals: Vital Signs Temp Pulse Pulse Resp BP Pulse Ox 03/23/22 08:00 97.5 F L 65 18 128/72 100 03/23/22 01:18 97.6 F 65 16 155/75 100 03/22/22 20:51 96.9 F L 67 15 159/62 98 03/22/22 17:05 70 135/73 94 L 03/22/22 16:50 70 128/70 96 03/22/22 16:35 63 134/69 95 03/22/22 16:20 62 136/69 96 03/22/22 16:05 61 136/69 96 03/22/22 15:50 64 137/72 96 03/22/22 15:35 60 124/63 97 03/22/22 15:20 63 119/56 97 03/22/22 15:04 97.8 F 53 L 18 97/50 96 03/22/22 14:35 67 16 115/54 96 03/22/22 14:19 63 16 122/70 99 03/22/22 14:04 98.9 F 74 12 131/61 96 03/22/22 11:00 68 16 118/56 100 Intake and Output 03/22/22 03/23/22 03/23/22 22:59 06:59 14:59 Other: # Voids 0 Weight 83 kg Results - Lab Results Most recent lab results Calcium 8.7 mg/dL (8.7-10.3) 03/23/22 05:51 03/23/22 05:51 03/23/22 05:51 Assessment and Plan Plan: Assessment: 1. End-stage renal disease maintained on hemodialysis on Saturday schedule. 2. Left kidney cancer status post radical left nephrectomy 03/22/2022. 3. History of right renal cell cancer status post right nephrectomy in 2007. 4. Chronic kidney disease mineral bone disease maintained on PhosLo. Plan: Hemodialysis today. Patient considering home modality. This will be further addressed outpatient. Possible discharge home after dialysis today. Thank you for the consultation. I will continue to follow the patient with you during his hospital stay.
[2022-03-23 11:16] LABS: Glucose,Whole Blood 140 mg/dL (70-110)
[2022-03-23 14:37] VITALS: BP 139/99; PULSE 58; TEMP 97.6
[2022-03-23] MEDS ORDERED: ATORVASTATIN 10 MG TAB PO SCH (21:00)
[2022-03-23] MEDS ORDERED: POTASSIUM CHLORIDE ER 10 MEQ TAB.ER.PRT PO SCH (21:00)
== END 2022-03-23 16:31 | disposition home or self-care (01) ==
LOC: OR 08:10 → 4SSUR 14:16 → OR 03-23 16:31
PROVIDERS: ATTEND Urology
DX: N28.89 Other specified disorders of kidney and ureter (principal); G89.18 Other acute postprocedural pain; E11.22 Type 2 diabetes mellitus with diabetic chronic kidney disease; N18.9 Chronic kidney disease, unspecified; G47.30 Sleep apnea, unspecified; Z85.528 Personal history of other malignant neoplasm of kidney; Z90.5 Acquired absence of kidney; Z98.890 Other specified postprocedural states; Z96.60 Presence of unspecified orthopedic joint implant; Z87.891 Personal history of nicotine dependence; Z83.3 Family history of diabetes mellitus; Z82.49 Family history of ischemic heart disease and other diseases of the circulatory system; Z79.82 Long term (current) use of aspirin; Z79.4 Long term (current) use of insulin; Z79.02 Long term (current) use of antithrombotics/antiplatelets
CPT/HCPCS: 50545; 64488; 86900; 86901; 80053; 80048; 85025; 86850; C1762; J2250; J1200; J1100; J2710; J0690; J2405 ×2; J3010; J1170 ×2; J2795; J2704; J1644 ×2; J2001; 90935

== ENCOUNTER 2022-07-22 12:41 | Emergency (ER) | payer MEDICARE, OTHER ==
--- NOTE | 2022-07-22 13:36 | ED ---
Recheck HPI - General Chief Complaint: Recheck/Abnormal Lab/Rx Stated Complaint: abn labs Time Seen by Provider: 07/22/22 12:46 Source: patient, RN notes reviewed Mode of arrival: ambulatory Limitations: no limitations - History of Present Illness Initial Comments: 67-year-old male history of renal cell carcinoma with bilateral nephrectomy history of dialysis Saturday called by his doctor and told come in the hospital today because of a hemoglobin of 7.6. Having dizziness when he stands his normal hemoglobin is 9.6-10.2 range. He denies any abdominal pain he has occasional cough he did have some slight bleeding when he blew his nose this morning. He has been having black stools over the last week he started taking iron supplements a week ago. No nausea vomiting no current complaints other factors at this time - Related Data Home Medications Medication Instructions Recorded Confirmed Aspirin 81 mg PO DAILY 05/19/14 07/22/22 Cholecalciferol [Vitamin D3 (25 25 mcg PO DAILY 11/09/20 07/22/22 Mcg = 1000 Iu)] Insulin Lispro Protamin/Lispro 1 dose SQ BID PRN 02/16/22 07/22/22 [humaLOG Mix 75-25 Kwikpen] allopurinoL [Zyloprim] 100 mg PO DAILY 02/16/22 07/22/22 Calcium Acetate 1,334 tab PO BID-W/MEALS 03/20/22 07/22/22 Midodrine HCl 5 mg PO TID PRN 03/20/22 07/22/22 Potassium Chloride ER [K-Dur 10] 10 meq PO HS 03/20/22 07/22/22 Fiber With Vitamin B Gummy 1 cap PO DAILY 07/22/22 07/22/22 (Unknown Strength) Lidocaine-Prilocaine Cream [Emla 1 applic TOPICAL DAILY PRN 07/22/22 07/22/22 Cream 2.5%/2.5%] Allergies Allergy/AdvReac Type Severity Reaction Status Date / Time No Known Allergies Allergy Verified 07/22/22 13:34 Review of Systems ROS Statement: Those systems with pertinent positive or pertinent negative responses have been documented in the HPI. ROS Other: All systems not noted in ROS Statement are negative. Past Medical History Past Medical History: Cancer, Diabetes Mellitus, Hypertension, Renal Disease Additional Past Medical History / Comment(s): WORK UP FOR CANCER OF LEFT KIDNEY CANCER. RIGHT KIDNEY CANCER.HEMODIAYSIS MWF History of Any Multi-Drug Resistant Organisms: None Reported Date of last positivie culture/infection: UNKNOWN DATE MDRO Source:: BILATERAL LOWER EXTREMITIES. Past Surgical History: No Surgical Hx Reported, Pacemaker Additional Past Surgical History / Comment(s): colon cancer, bilateral nephrectomy Past Anesthesia/Blood Transfusion Reactions: Previous Problems w/ Anesthesia, Motion Sickness, Postoperative Nausea & Vomiting (PONV) Additional Past Anesthesia/Blood Transfusion Reaction / Comment(s): Pt states he gets "violently sick" with anesthesia. Type of Cardiac Device: Permanent Pacemaker Device Placement Date:: DECEMBER 2021? 2 [facility] Past Psychological History: No Psychological Hx Reported Smoking Status: Former smoker Past Alcohol Use History: None Reported Past Drug Use History: None Reported - Past Family History Mother Family Medical History: Diabetes Mellitus Additional Family Medical History / Comment(s): pacemaker. Father Family Medical History: Coronary Artery Disease (CAD) General Exam - General Exam Comments Initial Comments: This is a well-developed well-nourished awake alert oriented 4 male Limitations: no limitations General appearance: alert, in no apparent distress Head exam: Present: atraumatic, normocephalic, normal inspection Eye exam: Present: normal appearance, PERRL, EOMI. Absent: scleral icterus, conjunctival injection, periorbital swelling ENT exam: Present: normal exam, mucous membranes moist Neck exam: Present: normal inspection. Absent: tenderness, meningismus, lymphadenopathy Respiratory exam: Present: normal lung sounds bilaterally. Absent: respiratory distress, wheezes, rales, rhonchi, stridor Cardiovascular Exam: Present: regular rate, normal rhythm, normal heart sounds. Absent: systolic murmur, diastolic murmur, rubs, gallop, clicks GI/Abdominal exam: Present: soft, tenderness (Mild left lower quadrant tenderness he states this is chronic since his nephrectomy. Nothing out of the ordinary.), normal bowel sounds. Absent: distended, guarding, rebound, rigid Extremities exam: Present: normal inspection, full ROM, normal capillary refill. Absent: tenderness, pedal edema, joint swelling, calf tenderness Back exam: Present: normal inspection Neurological exam: Present: alert, oriented X3, CN II-XII intact Psychiatric exam: Present: normal affect, normal mood Skin exam: Present: warm, dry, intact, normal color. Absent: rash Course Vital Signs 07/22/22 07/22/22 07/22/22 12:58 14:01 14:55 Temperature 98.1 F Pulse Rate 76 64 67 Respiratory 18 16 16 Rate Blood Pressure 138/64 130/60 126/66 O2 Sat by Pulse 100 98 99 Oximetry 07/22/22 07/22/22 07/22/22 15:29 15:37 15:51 Temperature 98 F 98.8 F 98.8 F Pulse Rate 73 60 60 Respiratory 16 16 16 Rate Blood Pressure 120/60 133/61 135/69 O2 Sat by Pulse 98 98 99 Oximetry 07/22/22 15:57 Temperature Pulse Rate 64 Respiratory 16 Rate Blood Pressure 135/69 O2 Sat by Pulse 98 Oximetry Medical Decision Making - Medical Decision Making I did discuss the findings with patient family as well as with Dr. Garcia patient will receive one unit of blood and be discharged home keeping outpatient dial ysis appointments tomorrow and follow with Dr. Garcia patient and family are in agreement with this. Patient does say he's been on iron for a week and does have black loose stool. Dr. Garcia is aware this. Likely secondary to anemia of chronic disease along with the black stool been secondary to the iron intake.Was pt. sent in by a medical professional or institution (, PA, RATE AND COST ANALYST, urgent care, hospital, or assisted...) When possible be specific @ -After Jose Did you speak to anyone other than the patient for history (EMS, parent, family, police, friend...)? What history was obtained from this source @ -Shira Did you review nursing and triage notes (agree or disagree)? Why? @ -I reviewed and agree with nursing and triage notes Were old charts reviewed (outside hosp., previous admission, EMS record, old EKG, old radiological studies, urgent care reports/EKG's, assisted records)? Report findings @ -old charts were reviewed Differential Diagnosis (chest pain, altered mental status, abdominal pain women, abdominal pain men, vaginal bleeding, weakness, fever, dyspnea, syncope, headache, dizziness, GI bleed, back pain, seizure, CVA, palpatations, mental health)? @ -Anemia of chronic disease, melena secondary to iron pill ingestion EKG interpreted by me (3pts min.). @ -As above X-rays interpreted by me (1pt min.). @ -None done CT interpreted by me (1pt min.). @ -None done U/S interpreted by me (1pt. min.). @ -None done What testing was considered but not performed or refused? (CT, X-rays, U/S, labs)? Why? @ -None What meds were considered but not given or refused? Why? @ -None Did you discuss the management of the patient with other professionals (professionals i.e. DrJefferson, PA, RATE AND COST ANALYST, lab, RT, psych nurse, manager social media, retail analyst, teacher, safety security officer, rn field case manager)? Give summary @ -No Was smoking cessation discussed for >3mins.? @ -No Was critical care preformed (if so, how long)? @ -No Were there social determinants of health that impacted care today? How? (Homelessness, low income, unemployed, alcoholism, drug addiction, transportation, low edu. Level, literacy, decrease access to med. care, usp, rehab)? @ -No Was there de-escalation of care discussed even if they declined (Discuss DNR or withdrawal of care, Hospice)? DNR status @ -No What co-morbidities impacted this encounter? (DM, HTN, Smoking, COPD, CAD, Cancer, CVA, ARF, Chemo, Hep., AIDS, mental health diagnosis, sleep apnea, morbid obesity)? @ -None Was patient admitted / discharged? Hospital course, mention meds given and rout e, prescriptions, significant lab abnormalities, going to OR and other pertinent info. @ -hospital course patient was discharged Undiagnosed new problem with uncertain prognosis? @ -No Drug Therapy requiring intensive monitoring for toxicity (Heparin, Nitro, Insulin, Cardizem)? @ -No Were any procedures done? @ -No Diagnosis/symptom? @ -default symptomatic anemia, chronic renal failure, black stools secondary to iron ingestion Acute, or Chronic, or Acute on Chronic? @ -default Uncomplicated (without systemic symptoms) or Complicated (systemic symptoms)? @ -default Side effects of treatment? @ -No Exacerbation, Progression, or Severe Exacerbation? @ -No Poses a threat to life or bodily function? How? (Chest pain, [place], [place], pneumonia, PE, COPD, DKA, ARF, appy, cholecystitis, CVA, Diverticulitis, Homicidal, Suicidal, threat to staff... and all critical care pts) @ -No - Lab Data Result diagrams: 07/22/22 13:50 07/22/22 13:50 Lab Results 07/22/22 07/22/22 07/22/22 Range/Units 13:50 13:50 13:50 WBC 4.9 (3.8-10.6) k/uL RBC 2.63 L (4.30-5.90) m/uL Hgb 7.8 L (13.0-17.5) gm/dL Hct 24.1 L (39.0-53.0) % MCV 91.7 (80.0-100.0) fL MCH 29.6 (25.0-35.0) pg MCHC 32.3 (31.0-37.0) g/dL RDW 13.8 (11.5-15.5) % Plt Count 148 L (150-450) k/uL MPV 9.0 Neutrophils % 78 % Lymphocytes % 15 % Monocytes % 5 % Eosinophils % 1 % Basophils % 1 % Neutrophils # 3.8 (1.3-7.7) k/uL Lymphocytes # 0.7 L (1.0-4.8) k/uL Monocytes # 0.3 (0-1.0) k/uL Eosinophils # 0.0 (0-0.7) k/uL Basophils # 0.0 (0-0.2) k/uL Sodium 138 (137-145) mmol/L Potassium 4.5 (3.5-5.1) mmol/L Chloride 96 L (98-107) mmol/L Carbon Dioxide 32 H (22-30) mmol/L Anion Gap 10 mmol/L BUN 43 H (9-20) mg/dL Creatinine 6.74 H (0.66-1.25) mg/dL Est GFR (CKD-EPI)AfAm 9 (>60 ml/min/1.73 sqM) Est GFR (CKD-EPI)NonAf 8 (>60 ml/min/1.73 sqM) Glucose 215 H (74-99) mg/dL Calcium 8.6 (8.4-10.2) mg/dL Magnesium 2.0 (1.6-2.3) mg/dL Total Bilirubin 0.5 (0.2-1.3) mg/dL AST 18 (17-59) U/L ALT 17 (4-49) U/L Alkaline Phosphatase 104 (38-126) U/L Creatine Kinase 28 L (55-170) U/L Troponin I <0.012 (0.000-0.034) ng/mL Total Protein 6.6 (6.3-8.2) g/dL Albumin 3.3 L (3.5-5.0) g/dL Blood Type Blood Type Recheck Bld Type Recheck Status Antibody Screen Crossmatch Spec Expiration Date 07/22/22 Range/Units 13:50 WBC (3.8-10.6) k/uL RBC (4.30-5.90) m/uL Hgb (13.0-17.5) gm/dL Hct (39.0-53.0) % MCV (80.0-100.0) fL MCH (25.0-35.0) pg MCHC (31.0-37.0) g/dL RDW (11.5-15.5) % Plt Count (150-450) k/uL MPV Neutrophils % % Lymphocytes % % Monocytes % % Eosinophils % % Basophils % % Neutrophils # (1.3-7.7) k/uL Lymphocytes # (1.0-4.8) k/uL Monocytes # (0-1.0) k/uL Eosinophils # (0-0.7) k/uL Basophils # (0-0.2) k/uL Sodium (137-145) mmol/L Potassium (3.5-5.1) mmol/L Chloride (98-107) mmol/L Carbon Dioxide (22-30) mmol/L Anion Gap mmol/L BUN (9-20) mg/dL Creatinine (0.66-1.25) mg/dL Est GFR (CKD-EPI)AfAm (>60 ml/min/1.73 sqM) Est GFR (CKD-EPI)NonAf (>60 ml/min/1.73 sqM) Glucose (74-99) mg/dL Calcium (8.4-10.2) mg/dL Magnesium (1.6-2.3) mg/dL Total Bilirubin (0.2-1.3) mg/dL AST (17-59) U/L ALT (4-49) U/L Alkaline Phosphatase (38-126) U/L Creatine Kinase (55-170) U/L Troponin I (0.000-0.034) ng/mL Total Protein (6.3-8.2) g/dL Albumin (3.5-5.0) g/dL Blood Type A Positive Blood Type Recheck A Pos Bld Type Recheck Status No Antibody Screen NEGATIVE Crossmatch See Detail Spec Expiration Date 07/25/2022 5505 - EKG Data -: EKG Interpreted by Me EKG Comments: EKG interpreted by me N pacer at 71 QRS 171 QT since QTC 440/[address]-T wave changes seen. Disposition Clinical Impression: Symptomatic anemia, Chronic renal failure, Black stool Disposition: HOME SELF-CARE Condition: Good Instructions (If sedation given, give patient instructions): Iron Rich Diet (E D), Anemia (ED) Is patient prescribed a controlled substance at d/c from ED?: No Referrals: Harsh Garcia MD [Primary Care Provider] - 1-2 days Decision Date: 07/22/22 Decision Time: 16:44
[2022-07-22 13:57] LABS: Basophils % (A) 1 %; Eosinophils % (A) 1 %; HCT 24.1 % (39.0-53.0); HGB 7.8 gm/dL (13.0-17.5); Lymphocytes # (A) 0.7 k/uL (1.0-4.8); Lymphocytes % (A) 15 %; MCH 29.6 pg (25.0-35.0); MCHC 32.3 g/dL (31.0-37.0); MCV 91.7 fL (80.0-100.0); Monocytes # (A) 0.3 k/uL (0-1.0); Monocytes % (A) 5 %; Neutrophils # (A) 3.8 k/uL (1.3-7.7); Neutrophils % (A) 78 %; Platelet Count 148 k/uL (150-450); RBC 2.63 m/uL (4.30-5.90); RDW 13.8 % (11.5-15.5); WBC 4.9 k/uL (3.8-10.6)
[2022-07-22 14:07] LABS: Albumin 3.3 g/dL (3.5-5.0); Calcium 8.6 mg/dL (8.4-10.2); Potassium 4.5 mmol/L (3.5-5.1); Total Bilirubin 0.5 mg/dL (0.2-1.3); Total Protein 6.6 g/dL (6.3-8.2)
[2022-07-22 17:26] VITALS: TEMP 98
[2022-07-22 17:42] VITALS: BP 135/60; PULSE 63; RESP 16
== END 2022-07-22 18:03 | disposition home or self-care (01) ==
LOC: EC 12:41
DX: D64.9 Anemia, unspecified (principal); I12.0 Hypertensive chronic kidney disease with stage 5 chronic kidney disease or end stage renal disease; E11.22 Type 2 diabetes mellitus with diabetic chronic kidney disease; N18.6 End stage renal disease; R19.5 Other fecal abnormalities; Z87.891 Personal history of nicotine dependence; Z79.899 Other long term (current) drug therapy; Z79.4 Long term (current) use of insulin; Z79.82 Long term (current) use of aspirin
CPT/HCPCS: 36415; 93005; 86900; 86901; 80053; 82550; 83735; 84484; 85025; 86850; 86920; 99284; 36430; P9016

== ENCOUNTER 2022-10-04 08:36 | Day surgery (SDC) | payer MEDICARE ==
[2022-10-04 09:40] VITALS: RESP 16; TEMP 98.2
[2022-10-04 10:47] VITALS: BP 99/55; PULSE 68
--- NOTE | 2022-10-04 11:44 | US ---
EXAM: US biopsy soft tissue/muscle DATE OF EXAM: 10/04/2022 10:20 AM COMPARISON STUDIES: None PATIENT HISTORY: Subcutaneous nodule Informed consent was obtained while the patient's questions were answered. Left lower quadrant subcut aneous nodule was localized sonographically. The standard sterile technique and appropriate local ane sthesia was obtained utilizing 10 cc of lidocaine. Utilizing a [employer] biopsy device 3 core samples w ere obtained and sent to pathology in a formalin solution. The patient tolerated the procedure well a nd left the department in stable condition. RECOMMENDATION: As above .
== END 2022-10-04 10:25 | disposition home or self-care (01) ==
LOC: RADPROMAIN 08:36
PROVIDERS: ATTEND Internal Medicine
DX: C64.9 Malignant neoplasm of unspecified kidney, except renal pelvis (principal); Z79.82 Long term (current) use of aspirin
CPT/HCPCS: 20206; 76942; 88305; 88341; 88342